=== PATIENT | female | born 1975 | race Caucasian/White ===

== ENCOUNTER 2016-12-11 14:23 | Inpatient (IN) | payer MEDICAID, OTHER ==
[2016-12-11] VITALS (8 sets, daily range): BP systolic 95–127; BP diastolic 51–91; PULSE 38–92; RESP 18–20; TEMP 97.6–98; O2SAT 96–100
[~2016-12-11] VITALS: Ht 165.1 cm; Wt 80.5 kg
[~2016-12-11 14:23] MED LIST: BENT20TA OR; BUSP15TA PO; CLON1 PO; DOXY100T PO; FERR200T PO; HYDR50 PO; LEVO.2 PO; LEVO175T2 PO; LORT5TAB PO; METH10TA PO; OMPR20CCR PO; PROM25TA10 PO; PROM25TA5 PO; PROT40TA PO; SERO300T PO; TRAZ150T75 PO
--- NOTE | 2016-12-11 14:29 | PD ---
Physical Exam Time Seen by Provider: 14:28 Narrative 41 y/o female here for evaluation of bradycardia, out of synthroid for over 1 year, abnormal ekg at physicians office today. Vital signs reviewed. seen at triage desk. Awaiting bed placement. Data Data Last Documented VS Vital Signs Date Time Temp Pulse Resp B/P Pulse Ox O2 Delivery O2 Flow Rate FiO2 12/11/16 14:24 98.0 38 20 125/[address] [facility] Medical Record Reviewed: Yes Supervised Visit with CAMERON: No Shawn Carson Dec 11, 2016 14:29
--- NOTE | 2016-12-11 15:08 | PD ---
HPI Chief Complaint: Cardiac Complaint Time Seen by Provider: 15:08 Travel History International Travel<30 days: No Contact w/Intl Traveler<30days: No Traveled to known affect area: No History of Present Illness HPI 41 year old female presents to the emergency department for evaluation of bradycardia. The patient states that she went to see her primary care physician today and her heart rate was 40. EKG was done. Her primary care physician told her it was most likely due to her thyroid. She left the office and went to see her psychiatrist. They took her vitals and her blood pressure was stable. Her heart rate was again 40. Patient was seeing her psychiatrist and her primary care physician called her and told her that she should probably go to the emergency department. The patient states that she became extremely anxious at that point and started with left-sided chest pain. She states she feels short of breath. She states that she has a long history of anxiety. She is on Seroquel, Klonopin, methadone, Protonix. She has a history of anemia, Martinez esophagus, h/o esophageal stricture, anxiety. She states she has anemia from heavy menstrual cycles. She states she has been on her menstrual cycle for 3 days now and states it is heavy. She states she felt lightheaded yesterday and felt like she was going to have a syncopal episode, but did not. PFSH Past Medical History Anemia: Yes Arthritis: No Asthma: No Autoimmune Disease: No Blood Disorders: No Anxiety: Yes Depression: Yes Heart Rhythm Problems: No Cancer: No Cardiovascular Problems: No High Cholesterol: No Chest Pain: No Congestive Heart Failure: No COPD: No Cerebrovascular Accident: Yes (TIA 1997) Diabetes: No Diminished Hearing: No Endocrine: Yes Gastrointestinal Disorders: Yes (GASTROPARESIS/ BARRETTS ESOPHAGUS) GERD: Yes Glaucoma: No Genitourinary: Yes (CHRONIC PID PER PT) Hepatitis: No Hiatal Hernia: No Hypertension: No Immune Disorder: No Implanted Vascular Access Dvce: Yes Kidney Stones: No Musculoskeletal: No Neurologic: Yes Psychiatric: No Reproductive: No Respiratory: No Myocardial Infarction: No Renal Failure: No Sleep Apnea: No Thyroid Disease: Yes Ulcer: No ?: Not LMP: 12/09/16 : 2 Para: 2 Miscarriage: 2 : 0 Tubal Ligation: Yes Past Surgical History Abdominal Surgery: No Appendectomy: No Cardiac Surgery: No Section: Yes (X2) Cholecystectomy: No Ear Surgery: No Endocrine Surgery: No Eye Surgery: No Genitourinary Surgery: No Gynecologic Surgery: Yes (TUBAL LIGATION & C- SECTION X 2) Oral Surgery: Yes (FULL MOUTH EXTRACTION) Thoracic Surgery: No Tonsillectomy: Yes Other Surgery: Yes Social History Alcohol Use: No Tobacco Use: No Substance Use: No Allergies-Medications (Allergen,Severity, Reaction): Coded Allergies: No Known Allergies (Verified , 12/11/16) Reported Meds & Prescriptions Reported Meds & Active Scripts Active Feosol (Ferrous Sulfate) 200 Mg Tab 200 Mg PO DAILY Synthroid (Levothyroxine Sodium) 200 Mcg Tab 200 Mcg PO DAILY Phenergan (Promethazine HCl) 25 Mg Tablet 25 Mg PO ONCE Reported Protonix (Pantoprazole Sodium) 40 Mg Tab 40 Mg PO DAILY Methadone (Methadone HCl) 10 Mg Tab 10 Mg PO DAILY Klonopin (Clonazepam) 1 Mg Tab 1 Mg PO HS Seroquel (Quetiapine Fumarate) 300 Mg Tab 300 Mg PO BID Review of Systems Except as stated in HPI: all other systems reviewed are Neg Physical Exam Narrative GENERAL: Well-nourished, well-developed female patient, ambulatory. Afebrile. SKIN: Focused skin assessment warm/dry. HEAD: Normocephalic. Atraumatic. EYES: No scleral icterus. No injection or drainage. NECK: Supple, trachea midline. No JVD or lymphadenopathy. CARDIOVASCULAR: Regular rhythm without murmurs, gallops, or rubs. Patient is bradycardic with heart rate in the 30s, bigeminy. She is not perfusing the PVCs. RESPIRATORY: Breath sounds equal bilaterally. No accessory muscle use. Lungs sounds are clear to auscultation. GASTROINTESTINAL: Abdomen soft, non-tender, nondistended. MUSCULOSKELETAL: No cyanosis, or edema. BACK: Nontender without obvious deformity. No CVA tenderness. Data Data Last Documented VS Vital Signs Date Time Temp Pulse Resp B/P Pulse Ox O2 Delivery O2 Flow Rate FiO2 12/11/16 16:18 70 18 127/91 99 Room Air 12/11/16 14:24 98.0 Orders Electrocardiogram (12/11/16 ) Complete Blood Count With Diff (12/11/16 14:33) Comprehensive Metabolic Panel (12/11/16 14:33) Magnesium (Mg) (12/11/16 14:33) Ckmb (Isoenzyme) Profile (12/11/16 14:33) Troponin I (12/11/16 14:33) Thyroid Stimulating Hormone (12/11/16 14:33) Ed Urine Pregnancytest Poc (12/11/16 14:33) Chest, Single Ap (12/11/16 14:33) Lorazepam Inj (Ativan Inj) (12/11/16 15:30) CKMB (12/11/16 14:45) CKMB% (12/11/16 14:45) Admit Order (Ed Use Only) (12/11/16 17:32) Labs Laboratory Tests Test 12/11/16 14:45 White Blood Count 7.4 TH/MM3 Red Blood Count 3.92 MIL/MM3 Hemoglobin 10.1 GM/DL Hematocrit 31.3 % Mean Corpuscular Volume 79.8 FL Mean Corpuscular Hemoglobin 25.7 PG Mean Corpuscular Hemoglobin 32.3 % Concent Red Cell Distribution Width 22.6 % Platelet Count 205 TH/MM3 Mean Platelet Volume 9.4 FL Neutrophils (%) (Auto) 52.8 % Lymphocytes (%) (Auto) 39.5 % Monocytes (%) (Auto) 4.4 % Eosinophils (%) (Auto) 2.5 % Basophils (%) (Auto) 0.8 % Neutrophils # (Auto) 3.9 TH/MM3 Lymphocytes # (Auto) 2.9 TH/MM3 Monocytes # (Auto) 0.3 TH/MM3 Eosinophils # (Auto) 0.2 TH/MM3 Basophils # (Auto) 0.1 TH/MM3 CBC Comment DIFF FINAL Differential Comment Sodium Level 139 MEQ/L Potassium Level 4.3 MEQ/L Chloride Level 103 MEQ/L Carbon Dioxide Level 27.9 MEQ/L Anion Gap 8 MEQ/L Blood Urea Nitrogen 10 MG/DL Creatinine 1.62 MG/DL Estimat Glomerular Filtration 35 ML/MIN Rate Random Glucose 81 MG/DL Calcium Level 8.6 MG/DL Magnesium Level 2.2 MG/DL Total Bilirubin 0.3 MG/DL Aspartate Amino Transf 29 U/L (AST/SGOT) Alanine Aminotransferase 41 U/L (ALT/SGPT) Alkaline Phosphatase 48 U/L Total Creatine Kinase 168 U/L Creatine Kinase MB 1.0 NG/ML Troponin I LESS THAN 0.02 NG/ML Total Protein 7.7 GM/DL Albumin 4.0 GM/DL Thyroid Stimulating Hormone GREATER THAN 3rd Gen 100.000 uIU/ML MDM Medical Decision Making Medical Screen Exam Complete: Yes Emergency Medical Condition: Yes Medical Record Reviewed: Yes Differential Diagnosis Bigeminy versus electrolyte abnormality versus anemia Narrative Course 41-year-old female presents to the emergency department sent by her primary care physician for abnormal EKG, bradycardia. On exam, she is in bigeminy not perfusing the PVCs. She is anxious. EKG, CBC, CMP, magnesium, CK, troponin, TSH, chest x-ray are ordered and pending. CBC shows hemoglobin 10.1, hematocrit 31.3. CMP shows creatinine 1.62. CK is 168. Troponin is less than 0.02. Magnesium is 2.2. TSH is greater than 100.0. I discussed this with [facility] would like me to contact cardiology track service person. I spoke to Dr. crisostomo who would like the patient be nothing by mouth after midnight. Consult was placed. Patient is admitted. Diagnosis Primary Impression: Bradycardia Additional Impressions: Bigeminal rhythm Abnormal EKG Hypothyroidism Qualified Code: E03.9 - Hypothyroidism, unspecified type Admitting Information Admitting Physician Requests: Admit Karyna Malhotra Dec 11, 2016 15:08
[2016-12-11] MEDS ORDERED: LORazepam 2 MG/ML VIAL IV PUSH ONE (15:30)
[2016-12-11 15:42] LABS: AUTOMATED NEUTROPHIL # 3.9 TH/MM3 (1.8-7.7); BASOPHIL # 0.1 TH/MM3 (0-0.2); BASOPHIL % 0.8 % (0.0-2.0); EOSINOPHIL # 0.2 TH/MM3 (0-0.4); EOSINOPHIL % 2.5 % (0.0-4.0); HEMATOCRIT 31.3 % (35.0-46.0); HEMO FLAGS DIFF FINAL; LYMPH % 39.5 % (9.0-44.0); LYMPHOCYTE # 2.9 TH/MM3 (1.0-4.8); MEAN CELL VOLUME 79.8 FL (80.0-100.0); MEAN CORPUSCULAR HEMOGLOBIN 25.7 PG (27.0-34.0); MEAN CORPUSCULAR HGB CONC 32.3 % (32.0-36.0); MONO % 4.4 % (0.0-8.0); NEUT % 52.8 % (16.0-70.0); PLATELET COUNT 205 TH/MM3 (150-450); RED BLOOD COUNT 3.92 MIL/MM3 (4.00-5.30); RED CELL DISTRIBUTION WIDTH 22.6 % (11.6-17.2); WHITE BLOOD COUNT 7.4 TH/MM3 (4.0-11.0)
[2016-12-11 15:58] LABS: ALT (GPT) 41 U/L (10-53); ANION GAP 8 MEQ/L (5-15); AST (GOT) 29 U/L (15-37); BICARBONATE 27.9 MEQ/L (21.0-32.0); BLOOD UREA NITROGEN 10 MG/DL (7-18); CHLORIDE 103 MEQ/L (98-107); GLOMERULAR FILTRATION RATE 35 ML/MIN (>89); MAGNESIUM 2.2 MG/DL (1.5-2.5); POTASSIUM 4.3 MEQ/L (3.5-5.1); SODIUM (NA) 139 MEQ/L (136-145)
[2016-12-11 16:30] LABS: ALKALINE PHOSPHATASE 48 U/L (45-117); CREATINE KINASE 168 U/L (26-192); TOTAL BILIRUBIN ADULT 0.3 MG/DL (0.2-1.0)
--- NOTE | 2016-12-11 16:45 | RADRPT ---
EXAM DATE/TIME: 12/11/2016 16:12 [place] COMPARISON: No previous studies available for comparison. INDICATIONS : Shortness of breath. MEDICAL HISTORY : None. SURGICAL HISTORY : Tubal ligation. section. Tonsillectomy. ENCOUNTER: Initial ACUITY: 1 day PAIN SCORE: 0/10 LOCATION: Bilateral chest FINDINGS: A single view of the chest demonstrates the lungs to be symmetrically aerated without evidence of mas s, infiltrate or effusion. Minimal basal atelectasis. The cardiomediastinal contours are unremarkable . Osseous structures are intact. CONCLUSION: 1. No acute findings. Minimal basal atelectasis. Anish Jimenez MD on December 11, 2016 at 16:43 Board Certified Radiologist. This report was verified electronically.
[2016-12-11] MEDS ORDERED: ACETAMINOPHEN 325 MG TAB PO PRN ×2 (18:00)
[2016-12-11] MEDS ORDERED: MAGNESIUM HYDROXIDE SUSP 30 ML CUP PO PRN (18:00)
[2016-12-11] MEDS ORDERED: SODIUM CHLORIDE 0.9% FLUSH 10 ML FLUSH IV FLUSH PRN (18:00)
[2016-12-11] MEDS ORDERED: NALOXONE HCL 0.4 MG/ML AMP IV PRN (18:00)
[2016-12-11] MEDS ORDERED: SENNOSIDES 8.6 MG TAB PO PRN (18:00)
[2016-12-11] MEDS ORDERED: LACTULOSE SYRUP 20 GM/30 ML CUP PO PRN (18:00)
[2016-12-11] MEDS ORDERED: BISACODYL 10 MG SUPP RECTAL PRN (18:00)
--- NOTE | 2016-12-11 18:15 | HHI.HP ---
HPI Service [place] [facility] Primary Care Physician Sabrina White MD Admission Diagnosis bradycardia, CP, bigeminy Diagnoses: Chief Complaint: Bradycardia Travel History International Travel<30 Days: No Contact w/Intl Traveler <30 Da: No Traveled to Known Affected Are: No History of Present Illness 41-year-old female with past medical history of hypothyroidism, ADA, GERD, bipolar, and history of opiate abuse who was sent by PCP for bradycardia. The patient establish with her [facility]. She is noted to have a heart rate of 38 at the time. It had been recommended that she go to the ED, but she wanted to go to her outpatient psychiatrist appointment first. She states that she went and saw her psychiatrist and they have noted that her heart rate was 40 that time and also recommended she come to the ED. The patient initially came to the ED today and heart rate was 38 upon presentation. The patient states that she's been feeling lightheaded for the last few days and yesterday felt like she was when the pass out. She states her symptoms are worse with standing. She states that she's been on her period for the last 3 days, normally feels a little bit dizzy with standing when she is on her period but not so badly. The patient has been off of her thyroid medications for several months and got her prescription refilled today. She is also on methadone for history of substance abuse, has been clean for 3 years. She states that she has been tapering methadone 10 mg every 2 weeks, just decreased to 140 mg daily today. Per ED report, patient's heart rate has been running 50 60s, but palpably has been 30 and 40s and she was noted to have intermittent episodes of bigeminy. She states that she felt short of breath earlier, but attributed it to her severe anxiety. She denies any chest pain. Review of Systems Except as stated in HPI: all other systems reviewed are Neg Past Family Social History Past Medical History Hypothyroidism Versus esophagitis/GERD Iron deficiency anemia Anxiety and bipolar disorder History of opiate abuse Past Surgical History 2 and tubal ligation Tonsillectomy EGDs Reported Medications Reported Meds & Active Scripts Active Feosol (Ferrous Sulfate) 200 Mg Tab 200 Mg PO DAILY Synthroid (Levothyroxine Sodium) 200 Mcg Tab 200 Mcg PO DAILY Phenergan (Promethazine HCl) 25 Mg Tablet 25 Mg PO ONCE Reported Protonix (Pantoprazole Sodium) 40 Mg Tab 40 Mg PO DAILY Methadone (Methadone HCl) 10 Mg Tab 10 Mg PO DAILY Klonopin (Clonazepam) 1 Mg Tab 1 Mg PO HS Seroquel (Quetiapine Fumarate) 300 Mg Tab 300 Mg PO BID Allergies: Coded Allergies: No Known Allergies (Verified , 12/11/16) Family History Reviewed, negative family history pertinent to current chief complaint Social History Patient denies any alcohol or tobacco use History of opiate abuse, reports she has been clean 3 years Physical Exam Vital Signs Vital Signs Date Time Temp Pulse Resp B/P Pulse Ox O2 Delivery O2 Flow Rate FiO2 12/11/16 17:39 92 18 104/57 96 Room Air 12/11/16 16:18 70 18 127/91 99 Room Air 12/11/16 15:38 63 18 113/59 99 Room Air 12/11/16 15:02 55 22 100 Room Air 12/11/16 14:24 98.0 38 20 125/62 98 Room Air Physical Exam GENERAL: This is a well-nourished, well-developed patient, in no apparent distress. SKIN: No rashes, ecchymoses or lesions. Cool and dry. HEAD: Atraumatic. Normocephalic. No temporal or scalp tenderness. EYES: Pupils equal round and reactive. Extraocular motions intact. No scleral icterus. No injection or drainage. ENT: Nose without bleeding, purulent drainage or septal hematoma. Throat without erythema, tonsillar hypertrophy or exudate. Uvula midline. Airway patent. NECK: Trachea midline. No JVD or lymphadenopathy. Supple, nontender, no meningeal signs. CARDIOVASCULAR: Regular rate and rhythm without murmurs, gallops, or rubs. RESPIRATORY: Clear to auscultation. Breath sounds equal bilaterally. No wheezes , rales, or rhonchi. GASTROINTESTINAL: Abdomen soft, non-tender, nondistended. No hepato-splenomegaly , or palpable masses. No guarding. MUSCULOSKELETAL: Extremities without clubbing, cyanosis, or edema. No joint tenderness, effusion, or edema noted. No calf tenderness. Negative Homans sign bilaterally. NEUROLOGICAL: Awake and alert. Cranial nerves II through XII intact. Motor and sensory grossly within normal limits. Five out of 5 muscle strength in all muscle groups. Normal speech. Laboratory Laboratory Tests Test 12/11/16 14:45 White Blood Count 7.4 Red Blood Count 3.92 Hemoglobin 10.1 Hematocrit 31.3 Mean Corpuscular Volume 79.8 Mean Corpuscular Hemoglobin 25.7 Mean Corpuscular Hemoglobin 32.3 Concent Red Cell Distribution Width 22.6 Platelet Count 205 Mean Platelet Volume 9.4 Neutrophils (%) (Auto) 52.8 Lymphocytes (%) (Auto) 39.5 Monocytes (%) (Auto) 4.4 Eosinophils (%) (Auto) 2.5 Basophils (%) (Auto) 0.8 Neutrophils # (Auto) 3.9 Lymphocytes # (Auto) 2.9 Monocytes # (Auto) 0.3 Eosinophils # (Auto) 0.2 Basophils # (Auto) 0.1 CBC Comment DIFF FINAL Differential Comment Sodium Level 139 Potassium Level 4.3 Chloride Level 103 Carbon Dioxide Level 27.9 Anion Gap 8 Blood Urea Nitrogen 10 Creatinine 1.62 Estimat Glomerular Filtration 35 Rate Random Glucose 81 Calcium Level 8.6 Magnesium Level 2.2 Total Bilirubin 0.3 Aspartate Amino Transf 29 (AST/SGOT) Alanine Aminotransferase 41 (ALT/SGPT) Alkaline Phosphatase 48 Total Creatine Kinase 168 Creatine Kinase MB 1.0 Troponin I LESS THAN 0.02 Total Protein 7.7 Albumin 4.0 Thyroid Stimulating Hormone GREATER THAN 3rd Gen 100.000 Result Diagram: 12/11/16 1445 12/11/16 1445 Assessment and Plan Assessment and Plan 41-year-old female with past medical history of hypothyroidism, ADA, GERD, bipolar, and history of opiate abuse who was sent by PCP for bradycardia Symptomatic bradycardia: Palpable pulse around 38. Patient complaining of episodes of lightheadedness and near-syncope especially with standing. EKG shows NSR with bigeminal PVCs, rate 61 when counting PVCs, QT interval 476. Vital signs are currently stable. -Cardiology consulted, appreciate input -Will attempt to limit bradycardia causing medications -Monitor on telemetry -Trend cardiac enzymes and EKGs -Check orthostatics -Treat thyroid as below -Check echocardiogram CLEO: Creatinine 1.62, previously 0.74 and 04/19/12. Decreased renal perfusion? . IVF. Follow-up BMP. Hypothyroidism: Previously on levothyroxine 200 g daily, has been off of home medications for several months. Patient's PCP resumed her previous dose of levothyroxine today. TSH greater than 100,000. Continue levothyroxine. Microcytic anemia/iron deficiency anemia: Patient has history of [place], continue iron supplementation. Follow-up CBC. Check iron studies in the a.m. Bipolar disorder/anxiety: Continue Seroquel, consider decreasing dose. Continue Klonopin. History of opiate abuse: Patient decreased home methadone dose from 150 mg to 140 mg today. Consider shorter tapering course. GERD: Chronic, stable. Continue PPI. DVT prophylaxis: SCDs Discussed Condition With Patient, Dr. Lino Attending Statement The exam, history, and the medical decision-making described in the above note were completed with the assistance of the mid-level provider. I reviewed and agree with the findings presented. I attest that I had a [id number] encounter with the patient on the same day, and personally performed and documented my assessment and findings in the medical record. During my exam, patient is resting comfortably, slightly anxious otherwise. No acute distress. Palpable pulse and right radial artery is in the 30s to 40s. No lower extremity edema or JVD noted. Clear breath sounds bilaterally, abdomen is nondistended, soft. Patient has normal skin tone with no signs of pallor or cyanosis. Agree with plan as above. Adrian Valenzuela Dec 11, 2016 18:15 Jas Lino MD Dec 11, 2016 19:40
[2016-12-11] MEDS: SODIUM CHLOR 0.9% 1000 ML INJ 1,000 ML IV SCH (19:27)
[2016-12-11] MEDS ORDERED: hydrOXYzine PAMOATE 25 MG CAP PO PRN (20:00)
[2016-12-11] MEDS: DOCUSATE SODIUM 50 MG/SENNA 8.6 MG TAB PO SCH (20:43)
[2016-12-11] MEDS: clonazePAM 1 MG TAB PO SCH (20:43)
[2016-12-11] MEDS: SODIUM CHLORIDE 0.9% FLUSH 10 ML FLUSH IV FLUSH SCH (20:44)
[2016-12-11] MEDS: QUEtiapine FUMARATE 300 MG TAB PO SCH (22:46)
[2016-12-12] VITALS (23 sets, daily range): BP systolic 81–132; BP diastolic 55–74; PULSE 44–97; RESP 16–18; TEMP 97.5–98.9; O2SAT 92–98
[2016-12-12] MEDS: SODIUM CHLOR 0.9% 1000 ML INJ 1,000 ML IV SCH ×3 (05:00→23:54)
[2016-12-12] MEDS ORDERED: ONDANSETRON HCL 4 MG/2 ML VIAL IV PUSH PRN (05:45)
[2016-12-12] MEDS: LEVOTHYROXINE SODIUM 200 MCG TAB PO SCH (06:00)
[2016-12-12 06:14] LABS: AUTOMATED NEUTROPHIL # 2.1 TH/MM3 (1.8-7.7); BASOPHIL # 0.1 TH/MM3 (0-0.2); EOSINOPHIL # 0.3 TH/MM3 (0-0.4); EOSINOPHIL % 4.8 % (0.0-4.0); HEMATOCRIT 28.9 % (35.0-46.0); LYMPH % 51.3 % (9.0-44.0); LYMPHOCYTE # 2.8 TH/MM3 (1.0-4.8); MEAN CELL VOLUME 79.9 FL (80.0-100.0); MEAN CORPUSCULAR HEMOGLOBIN 26.8 PG (27.0-34.0); MEAN CORPUSCULAR HGB CONC 33.6 % (32.0-36.0); NEUT % 37.9 % (16.0-70.0); PLATELET COUNT 150 TH/MM3 (150-450); RED BLOOD COUNT 3.61 MIL/MM3 (4.00-5.30); RED CELL DISTRIBUTION WIDTH 22.9 % (11.6-17.2); WHITE BLOOD COUNT 5.4 TH/MM3 (4.0-11.0)
[2016-12-12 06:18] LABS: HEMO FLAGS AUTO DIFF
[2016-12-12 06:36] LABS: FERRITIN 5 NG/ML (8-252)
[2016-12-12 06:50] LABS: ACANTHOCYTES 1+ (NORMAL); ANION GAP 8 MEQ/L (5-15); BICARBONATE 25.8 MEQ/L (21.0-32.0); BLOOD UREA NITROGEN 10 MG/DL (7-18); CHLORIDE 105 MEQ/L (98-107); GLOMERULAR FILTRATION RATE 42 ML/MIN (>89); OVALOCYTES 1+ (NORMAL); PLATELET ESTIMATE SMEAR NORMAL (NORMAL); PLATELET MORPHOLOGY NORMAL (NORMAL); SODIUM (NA) 139 MEQ/L (136-145); TRANSFERRIN IRON PROFILE 279 MG/DL (200-360)
[2016-12-12 06:51] LABS: SCAN/DIFF AUTO DIFF CONFIRMED
[2016-12-12 06:53] LABS: POTASSIUM 3.8 MEQ/L (3.5-5.1)
--- NOTE | 2016-12-12 08:03 | PD.CONS ---
HPI Service CV Consult Requested By Reason for Consult bradycardia Primary Care Physician Sabrina White MD History of Present Illness Here with bipolar disorder and history of opiate abuse on methadone for symptomatic bradycardia. She was to establish with her PCP yesterday. On that visit her heart rate was in the high thirties. She was urged to go to ER but wanted to see her Psychiatrist. There her heart rate was in the forties. She has been of her levothyroxine. Here her TSH was found to be > 100. She complains of lightheadedness and shortness of breath. She denies chest pain or palpitations. One ECG revealed bigeminy with QTc 476. She takes Seroquel which is associated with QT prolongation (Claus Lloyd) Consult Requested By bradycardia - HR now generally in the 50's. Augments BP with ambulation. No indication for PPM for now unless syncopal. No conduction dz. Correct hypothyroidism and monitor HR response. avoid AV sara blocking agents. QTc less than 500 ms. monitor QTc with methadone and seroquel, both of which can prolong QT. if QTc > 500 ms, then will need to discontinue QT prolonging meds. will sign off call with further questions. (Lucio Mcknight MD) Review of Systems Consitutional: DENIES: Fatigue, Fever, Chills, Weight gain, Weight loss Eyes: DENIES: Amaurosis Fugax, Change in vision HEENT: COMPLAINS OF: Lightheadedness, DENIES: Change in hearing Respiratory: COMPLAINS OF: Shortness of breath, DENIES: See HPI, Cough, Snoring, Wheezing, Sputum production Cardiovascular: COMPLAINS OF: See HPI Gastrointestinal: DENIES: Nausea, Vomiting, Change in bowel habits, Reflux, Bloody stools, Melena Genitourinary: DENIES: Urinary incontinence, Difficulty voiding Integumentary: DENIES: Rash Neurologic: DENIES: Tingling or numbness, Memory problems, Poor Balance, Stroke symptoms Musculoskeletal: DENIES: Joint pain, Muscle pain, Limited range of motion, Back pain Psychiatric: DENIES: Anxiety, Depression, Sleep disturbances Hematologic: DENIES: Bruising tendencies, Bleeding tendencies Endocrine: DENIES: Weight gain, Weight loss, Thyroid disease (Claus Lloyd ) Past Family Social History Allergies: Coded Allergies: No Known Allergies (Verified , 12/11/16) Past Medical History Hypothyroidism esophagitis/GERD Iron deficiency anemia Anxiety Past Surgical History 2 and tubal ligation Tonsillectomy EGDs Reported Medications Reported Meds & Active Scripts Active Feosol (Ferrous Sulfate) 200 Mg Tab 200 Mg PO DAILY Synthroid (Levothyroxine Sodium) 200 Mcg Tab 200 Mcg PO DAILY Phenergan (Promethazine HCl) 25 Mg Tablet 25 Mg PO ONCE Reported Protonix (Pantoprazole Sodium) 40 Mg Tab 40 Mg PO DAILY Methadone (Methadone HCl) 10 Mg Tab 10 Mg PO DAILY Klonopin (Clonazepam) 1 Mg Tab 1 Mg PO HS Seroquel (Quetiapine Fumarate) 300 Mg Tab 300 Mg PO BID Active Ordered Medications Current Medications Medications (Trade) Dose Ordered Sig/Ailyn Route Start Time Stop Time Status Last Admin (NS 1000 ml Inj) 1,000 ml @ 100 mls/hr Q10H IV 12/11/16 17:54 12/12/16 05:00 (NS Flush) 2 ml UNSCH PRN IV FLUSH 12/11/16 18:00 (NS Flush) 2 ml BID IV FLUSH 12/11/16 21:00 (Tylenol) 650 mg Q4H PRN PO 12/11/16 18:00 (Tylenol) 650 mg Q6H PRN PO 12/11/16 18:00 (Narcan Inj) 0.4 mg UNSCH PRN IV 12/11/16 18:00 (Katharine-Colace) 1 tab BID PO 12/11/16 21:00 12/11/16 20:43 (Milk Of Magnesia Liq) 30 ml Q12H PRN PO 12/11/16 18:00 (Senokot) 17.2 mg Q12H PRN PO 12/11/16 18:00 (Dulcolax Supp) 10 mg DAILY PRN RECTAL 12/11/16 18:00 (Lactulose Liq) 30 ml DAILY PRN PO 12/11/16 18:00 (KlonoPIN) 1 mg HS PO 12/11/16 21:00 12/11/16 20:43 (Ferrous Sulfate) 325 mg DAILY PO 12/12/16 09:00 (Synthroid) 200 mcg DAILY@06 PO 12/12/16 06:00 12/12/16 06:00 (Protonix) 40 mg DAILY PO 12/12/16 09:00 (SEROquel) 300 mg BID PO 12/11/16 21:00 12/11/16 22:46 (Dolophine) 140 mg DAILY PO 12/12/16 09:00 (Vistaril) 25 mg Q8H PRN PO 12/11/16 20:00 Ondansetron HCl 4 mg 4 mg Q6HR PRN IV PUSH 12/12/16 05:45 12/12/16 05:30 (Venofer Inj/NS Inj) 105 ml @ 105 mls/hr DAILY IV 12/12/16 08:00 12/13/16 09:59 UNV Family History noncontributory Social History Patient denies any alcohol or tobacco use History of opiate abuse, reports she has been clean 3 years (Claus Lloyd) Physical Exam Vital Signs Vital Signs Date Time Temp Pulse Resp B/P Pulse Ox O2 Delivery O2 Flow Rate FiO2 12/12/16 06:00 48 12/12/16 05:00 52 12/12/16 04:00 52 12/12/16 03:00 97.6 44 18 81/57 95 12/12/16 03:00 56 12/12/16 02:00 56 12/12/16 01:00 54 12/12/16 00:13 21 12/12/16 00:00 54 12/11/16 23:00 97.6 55 18 112/70 96 12/11/16 23:00 58 12/11/16 23:00 97.6 55 18 112/70 96 12/11/16 22:00 54 12/11/16 18:48 58 18 105/58 100 Room Air 12/11/16 18:25 42 18 95/51 98 Room Air 12/11/16 17:39 92 18 104/57 96 Room Air 12/11/16 16:18 70 18 127/91 99 Room Air 12/11/16 15:38 63 18 113/59 99 Room Air 12/11/16 15:02 55 22 100 Room Air 12/11/16 14:24 98.0 38 20 125/62 98 Room Air Physical Exam GENERAL: Well-nourished, well-developed patient in no apparent distress. NECK: No JVD. No carotid bruit. CARDIOVASCULAR: Bradycardia, regular rhythm. S1/S2 no murmur, rub, or gallop. RESPIRATORY: No accessory muscle use. Clear to auscultation. Breath sounds equal bilaterally. GASTROINTESTINAL: Abdomen soft, non-tender, nondistended. MUSCULOSKELETAL: Extremities without clubbing, cyanosis, or edema. Laboratory Laboratory Tests Test 12/11/16 12/11/16 12/11/16 12/12/16 14:45 18:20 22:54 04:25 White Blood Count 7.4 5.4 Red Blood Count 3.92 3.61 Hemoglobin 10.1 9.7 Hematocrit 31.3 28.9 Mean Corpuscular Volume 79.8 79.9 Mean Corpuscular Hemoglobin 25.7 26.8 Mean Corpuscular Hemoglobin 32.3 33.6 Concent Red Cell Distribution Width 22.6 22.9 Platelet Count 205 150 Mean Platelet Volume 9.4 9.6 Neutrophils (%) (Auto) 52.8 37.9 Lymphocytes (%) (Auto) 39.5 51.3 Monocytes (%) (Auto) 4.4 5.0 Eosinophils (%) (Auto) 2.5 4.8 Basophils (%) (Auto) 0.8 1.0 Neutrophils # (Auto) 3.9 2.1 Lymphocytes # (Auto) 2.9 2.8 Monocytes # (Auto) 0.3 0.3 Eosinophils # (Auto) 0.2 0.3 Basophils # (Auto) 0.1 0.1 CBC Comment DIFF FINAL AUTO DIFF Differential Comment AUTO DIFF CONFIRMED Sodium Level 139 139 Potassium Level 4.3 3.8 Chloride Level 103 105 Carbon Dioxide Level 27.9 25.8 Anion Gap 8 8 Blood Urea Nitrogen 10 10 Creatinine 1.62 1.37 Estimat Glomerular Filtration 35 42 Rate Random Glucose 81 86 Calcium Level 8.6 7.9 Magnesium Level 2.2 Total Bilirubin 0.3 Aspartate Amino Transf 29 (AST/SGOT) Alanine Aminotransferase 41 (ALT/SGPT) Alkaline Phosphatase 48 Total Creatine Kinase 168 Creatine Kinase MB 1.0 Troponin I LESS THAN 0.02 LESS THAN 0.02 LESS THAN 0.02 Total Protein 7.7 Albumin 4.0 Thyroid Stimulating Hormone GREATER THAN 3rd Gen 100.000 Platelet Estimate NORMAL Platelet Morphology Comment NORMAL Ovalocytes 1+ Acanthocytes 1+ Iron Level 37 Total Iron Binding Capacity 391 Percent Iron Saturation 9.5 Ferritin 5 (Claus Lloyd) Result Diagram: 12/12/165 12/12/16424 Assessment and Plan Problem List: (1) Bradycardia Assessment and Plan Her bradycardia is most likely related to her hypothyroidism, As her thyroid function improves so should her heart rate. Her QTc returned to normal on second ECG, if she continues to have QT prolongation recommend discontinuing Seroquel Sign off, call with further questions (Claus Lloyd) Claus Lloyd Dec 12, 2016 08:03 Lucio Mcknight MD Dec 12, 2016 10:33
[2016-12-12] MEDS: FERROUS SULFATE 325 MG (65 MG ELEMENTAL IRON) TAB PO SCH (08:51)
[2016-12-12] MEDS: QUEtiapine FUMARATE 300 MG TAB PO SCH ×2 (08:51→21:29)
[2016-12-12] MEDS: PANTOPRAZOLE SOD 40 MG DELAYED RELEASE TAB PO SCH (08:51)
[2016-12-12] MEDS: METHADONE HCL 10 MG TAB PO SCH (08:52)
[2016-12-12] MEDS: SODIUM CHLORIDE 0.9% FLUSH 10 ML FLUSH IV FLUSH SCH ×2 (08:52→21:00)
[2016-12-12] MEDS: DOCUSATE SODIUM 50 MG/SENNA 8.6 MG TAB PO SCH ×2 (09:00→21:29)
[2016-12-12] MEDS: IRON SUCROSE INJ 100 MG in SODIUM CHLORIDE 0.9% INJ 100 ML IV SCH (09:00)
--- NOTE | 2016-12-12 11:51 | EKG ---
Date Performed: 12/11/2016 Time Performed: 18:50:46 PTAGE: 41 years EKG: SINUS BRADYCARDIA NONSPECIFIC ST & T-WAVE ABNORMALITY BORDERLINE ECG PREVIOUS TRACING : 12/11/2016 14.37 Compared to previous tracing, frequent PVCs are no longer p resent. DOCTOR: Farhat Sykes Interpretating Date/Time 12/12/2016 11:50:38
--- NOTE | 2016-12-12 11:51 | EKG ---
Date Performed: 12/11/2016 Time Performed: 14:37:48 PTAGE: 41 years EKG: Sinus bradycardia with frequent PVCs Nonspecific T-wave changes NO PREVIOUS TRACING DOCTOR: Farhat Sykes Interpretating Date/Time 12/15/2016 06:40:54
--- NOTE | 2016-12-12 17:25 | HHI.PR ---
Subjective Remarks Patient feels much better today, dizziness is a lot better, still has a little hesitation with prompt standing. Objective Vital Signs Date Time Temp Pulse Resp B/P Pulse Ox O2 Delivery O2 Flow Rate FiO2 12/12/16 17:12 72 12/12/16 16:02 98.3 97 18 92/55 98 12/12/16 16:02 72 12/12/16 14:31 79 12/12/16 13:37 72 12/12/16 12:38 98.9 81 18 132/74 12/12/16 12:31 80 12/12/16 11:00 56 12/12/16 10:12 97 21 12/12/16 08:00 97.9 61 18 105/71 97 110/69 12/12/16 06:00 48 12/12/16 05:00 52 12/12/16 04:00 52 12/12/16 03:00 97.6 44 18 81/57 95 12/12/16 03:00 56 12/12/16 02:00 56 12/12/16 01:00 54 12/12/16 00:13 21 12/12/16 00:00 54 12/11/16 23:00 97.6 55 18 112/70 96 12/11/16 23:00 58 12/11/16 23:00 97.6 55 18 112/70 96 12/11/16 22:00 54 12/11/16 18:48 58 18 105/58 100 Room Air 12/11/16 18:25 42 18 95/51 98 Room Air 12/11/16 17:39 92 18 104/57 96 Room Air I/O 12/11/16 12/11/16 12/11/16 12/12/16 12/12/16 12/12/16 07:00 15:00 23:00 07:00 15:00 23:00 Intake Total 1278 ml 470 ml Output Total 600 ml Balance 1278 ml -130 ml Intake Oral 240 ml 450 ml IV Total 1038 ml 20 ml Output Urine Total 600 ml Result Diagram: 12/12/16 0425 12/12/16 0425 Imaging Last Impressions Chest X-Ray 12/11/16 1433 Signed Impressions: Service Date/Time: December 16:12 - CONCLUSION: 1. No acute findings. Minimal basal atelectasis. Anish Jimenez MD Objective Remarks GENERAL: No acute distress, resting comfortably EYES: No scleral icterus. No injection or drainage. CARDIOVASCULAR: Heart rate in 50s to 60s that is palpable via Carotid which is in sync with regular heart sounds and no murmurs RESPIRATORY: Breath sounds equal bilaterally. No accessory muscle use. GASTROINTESTINAL: Abdomen soft, non-tender, nondistended. MUSCULOSKELETAL: No cyanosis, clubbing, or edema. A/P Problem List: (1) Hypothyroidism ICD Code: E03.9 (2) Bradycardia ICD Code: R00.1 (3) Anemia ICD Code: D64.9 Assessment and Plan 41-year-old female with past medical history of hypothyroidism, ADA, GERD, bipolar, and history of opiate abuse who was sent by PCP for bradycardia Symptomatic bradycardia: Appreciate cardiology input, suspect hypothyroidism is the main culprit, palpable pulses significantly improved along with patient's symptoms, continue telemetry and treat thyroid as below. Pending echo results. CLEO: Mild hydration, trend creatinine - suspect hypoperfusion. Treat with mild hydration Hypothyroidism: Was restarted on her Synthroid after long time due to poor PCP follow-up, TSH currently greater than 100,000, we'll obtain free T4, anticipate that this will get better drastically over the next 24 hours Microcytic anemia/iron deficiency anemia: Iron is indeed low, replacing with IV infusion Bipolar disorder/anxiety: Continue Seroquel, consider decreasing dose. Continue Klonopin. History of opiate abuse: Patient decreased home methadone dose from 150 mg to 140 mg today. Consider shorter tapering course. GERD: Chronic, stable. Continue PPI. DVT prophylaxis: SCDs Problem Qualifiers (1) Hypothyroidism: Qualified Code: E03.9 - Hypothyroidism, unspecified type (2) Anemia: Qualified Code: D50.0 - Iron deficiency anemia due to chronic blood loss Jas Lino MD Dec 12, 2016 17:25
--- NOTE | 2016-12-12 17:56 | ECHRPT ---
Indication: cardiomyopathy CONCLUSIONS The left ventricular systolic function is moderately reduced with an estimated ejection fraction in the range of 40-45%. There is global left ventricular dysfunction. [id number] mitral valve regurgitation. There is trace tricuspid valve regurgitation. BP: / HR: Rhythm: MEASUREMENTS (Male / Female) Normal Values Technical Quality:Fair 2D ECHO LV Diastolic Diameter PLAX 4.9 cm 4.2 - 5.9 / 3.9 - 5.3 cm LV Systolic Diameter PLAX 4.2 cm IVS Diastolic Thickness 1.0 cm 0.6 - 1.0 / 0.6 - 0.9 cm LVPW Diastolic Thickness 0.8 cm 0.6 - 1.0 / 0.6 - 0.9 cm LV Relative Wall Thickness 0.4 RV Internal Dim ED PLAX 2.8 cm M-MODE Aortic Root Diameter MM 2.9 cm LA Systolic Diameter MM 3.3 cm LA Ao Ratio MM 1.1 AV Cusp Separation MM 2.3 cm DOPPLER Mitral E Point Velocity 58.2 cm/s Mitral A Point Velocity 59.7 cm/s Mitral E to A Ratio 1.0 LV E' Lateral Velocity 16.4 cm/s Mitral E to LV E' Lateral Ratio 3.5 LV E' Septal Velocity 13.5 cm/s Mitral E to LV E' Septal Ratio 4.3 TR Peak Velocity 152.0 cm/s TR Peak Gradient 9.2 mmHg FINDINGS LEFT VENTRICLE Normal left ventricular size. Wall thickness is normal. The left ventricular systolic function is moderately reduced with an estimated ejection fraction in the range of 40-45%. There is global left ventricular dysfunction. Left ventricular diastolic function parameters are normal. RIGHT VENTRICLE Normal right ventricular size and systolic function. LEFT ATRIUM The left atrial size is normal. RIGHT ATRIUM The right atrial size is normal. ATRIAL SEPTUM The interatrial septum not well visualized. AORTA The aortic root and proximal ascending aorta are normal in size on limited imaging. MITRAL VALVE Structurally normal mitral valve. [id number] mitral valve regurgitation. AORTIC VALVE Trileaflet aortic valve. No aortic valve stenosis or regurgitation. TRICUSPID VALVE Structurally normal tricuspid valve. There is trace tricuspid valve regurgitation. PULMONARY VALVE The pulmonary valve is not well visualized. VESSELS The inferior vena cava is normal in size. PERICARDIUM No pericardial effusion. Brennon Butler DO (Electronically Signed) Final Date:12 December 2016 17:55
[2016-12-12] MEDS: clonazePAM 1 MG TAB PO SCH (21:29)
[2016-12-13] VITALS (14 sets, daily range): BP systolic 87–91; BP diastolic 53–57; PULSE 54–95; RESP 16–17; TEMP 98–98.2; O2SAT 92–96
[2016-12-13] MEDS: LEVOTHYROXINE SODIUM 200 MCG TAB PO SCH (06:25)
[2016-12-13] MEDS: METHADONE HCL 10 MG TAB PO SCH (08:40)
[2016-12-13] MEDS: PANTOPRAZOLE SOD 40 MG DELAYED RELEASE TAB PO SCH (08:41)
[2016-12-13] MEDS: QUEtiapine FUMARATE 300 MG TAB PO SCH (08:41)
[2016-12-13] MEDS: DOCUSATE SODIUM 50 MG/SENNA 8.6 MG TAB PO SCH (08:41)
[2016-12-13] MEDS: FERROUS SULFATE 325 MG (65 MG ELEMENTAL IRON) TAB PO SCH (08:42)
[2016-12-13] MEDS: SODIUM CHLORIDE 0.9% FLUSH 10 ML FLUSH IV FLUSH SCH (08:42)
[2016-12-13] MEDS: IRON SUCROSE INJ 100 MG in SODIUM CHLORIDE 0.9% INJ 100 ML IV SCH (08:42)
[2016-12-13] MEDS: SODIUM CHLOR 0.9% 1000 ML INJ 1,000 ML IV SCH (09:54)
--- NOTE | 2016-12-13 13:24 | HHI.DCPOC ---
Discharge Care Plan Diagnosis: (1) Hypothyroidism (2) Bradycardia (3) Anemia Additional Problems Hypothyroidism and slow heart rate Goals to Promote Your Health * To prevent worsening of your condition and complications * To maintain your health at the optimal level Directions to Meet Your Goals Take your medications as prescribed Follow your dietary instruction Follow activity as directed Wean yourself off of methadone under the care of your primary care provider. Also discussed with her provider the possibility of starting a medication known as lisinopril or similar meds to better restore pumping action of your heart. Keep your appointments as scheduled Take your immunizations and boosters as scheduled If your symptoms worsen call your PCP, if no PCP go to Urgent Care Center or Emergency Room Smoking is Dangerous to Your Health. Avoid second hand smoke Call the 24-hour hour crisis hotline for domestic abuse at Jas Lino MD Dec 13, 2016 13:24
--- NOTE | 2016-12-13 16:52 | HHI.DS ---
Discharge Summary Admission Date Dec 11, 2016 at 17:56 Discharge Date: Dec 13, 2016 Admitting Diagnosis bradycardia, CP, bigeminy (1) Hypothyroidism ICD Code: E03.9 Procedures None Brief History - From Admission 41-year-old female with past medical history of hypothyroidism, ADA, GERD, bipolar, and history of opiate abuse who was sent by PCP for bradycardia. The patient establish with [facility]. She is noted to have a heart rate of 38 at the time. It had been recommended that she go to the ED, but she wanted to go to her outpatient psychiatrist appointment first. She states that she went and saw her psychiatrist and they have noted that her heart rate was 40 that time and also recommended she come to the ED. The patient initially came to the ED today and heart rate was 38 upon presentation. The patient states that she's been feeling lightheaded for the last few days and yesterday felt like she was when the pass out. She states her symptoms are worse with standing. She states that she's been on her period for the last 3 days, normally feels a little bit dizzy with standing when she is on her period but not so badly. The patient has been off of her thyroid medications for several months and got her prescription refilled today. She is also on methadone for history of substance abuse, has been clean for 3 years. She states that she has been tapering methadone 10 mg every 2 weeks, just decreased to 140 mg daily today. Per ED report, patient's heart rate has been running 50 60s, but palpably has been 30 and 40s and she was noted to have intermittent episodes of bigeminy. She states that she felt short of breath earlier, but attributed it to her severe anxiety. She denies any chest pain. CBC/BMP: 12/12/16 0425 12/12/16 0425 Significant Findings Laboratory Tests Test 12/11/16 12/11/16 12/11/16 12/12/16 14:45 18:20 22:54 04:25 Red Blood Count 3.92 MIL/MM3 3.61 MIL/MM3 (4.00-5.30) (4.00-5.30) Hemoglobin 10.1 GM/DL 9.7 GM/DL (11.6-15.3) (11.6-15.3) Hematocrit 31.3 % 28.9 % (35.0-46.0) (35.0-46.0) Mean Corpuscular Volume 79.8 FL 79.9 FL (80.0-100.0) (80.0-100.0) Mean Corpuscular Hemoglobin 25.7 PG 26.8 PG (27.0-34.0) (27.0-34.0) Red Cell Distribution Width 22.6 % 22.9 % (11.6-17.2) (11.6-17.2) Creatinine 1.62 MG/DL 1.37 MG/DL (0.50-1.00) (0.50-1.00) Estimat Glomerular Filtration 35 ML/MIN (>89) 42 ML/MIN (>89) Rate Troponin I LESS THAN 0.02 LESS THAN 0.02 LESS THAN 0.02 NG/ML NG/ML NG/ML (0.02-0.05) (0.02-0.05) (0.02-0.05) Thyroid Stimulating Hormone GREATER THAN 3rd Gen 100.000 uIU/ML (0.358-3.740) Lymphocytes (%) (Auto) 51.3 % (9.0-44.0) Eosinophils (%) (Auto) 4.8 % (0.0-4.0) Ovalocytes 1+ (NORMAL) Acanthocytes 1+ (NORMAL) Calcium Level 7.9 MG/DL (8.5-10.1) Iron Level 37 MCG/DL (50-170) Percent Iron Saturation 9.5 % (20-50) Ferritin 5 NG/ML (8-252) Imaging Last Impressions Chest X-Ray 12/11/16 1433 Signed Impressions: Service Date/Time: December 16:12 - CONCLUSION: 1. No acute findings. Minimal basal atelectasis. Anish Jimenez MD PE at Discharge GENERAL: Resting comfortably, ambulating well with no signs of gait instability EYES: No scleral icterus. No injection or drainage. CARDIOVASCULAR: Regular rate and rhythm without murmurs, gallops, or rubs. RESPIRATORY: Breath sounds equal bilaterally. No accessory muscle use. GASTROINTESTINAL: Abdomen soft, non-tender, nondistended. MUSCULOSKELETAL: No cyanosis, or edema. Hospital Course Patient was admitted on telemetry. Cardiology was consulted, patient's bradycardia improved drastically with appropriate supplementation of Synthroid since her TSH was found to be over 100,000.. Patient was able to ambulate within 36 hours of medication management, had returned to baseline. Cardiology cleared patient for discharge with no need for procedural intervention. Patient understood that she needed to take her medication appropriately and follow up with her PCP for control refills. Patient was also given IV iron for supplementation due to her anemia. Patient had met maximum benefit from hospitalization and is clinically stable for discharge. Pt Condition on Discharge: Stable Discharge Disposition: Discharge Home Discharge Time: <= 30 minutes Discharge Instructions DIET: Follow Instructions for: As Tolerated, No Restrictions Activities you can perform: Regular-No Restrictions Follow up Referrals: PCP Follow-up - 10 Days Continued Medications: Clonazepam (Klonopin) 1 Mg Tab 1 MG PO HS #30 Ref 0 TAB Ferrous Sulfate (Feosol) 200 Mg Tab 200 MG PO DAILY Nutritional Supplement #30 Ref 0 TAB Levothyroxine (Synthroid) 200 Mcg Tab 200 MCG PO DAILY Thyroid #30 Ref 0 TAB Methadone (Methadone) 10 Mg Tab 10 MG PO DAILY Ref 0 TAB Pantoprazole (Protonix) 40 Mg Tab 40 MG PO DAILY Reflux #30 Ref 0 TAB Quetiapine (Seroquel) 300 Mg Tab 300 MG PO BID #60 Ref 0 TAB Jas Lino MD Dec 13, 2016 16:52
== END 2016-12-13 14:23 | disposition home or self-care (01) | DRG 644 ==
LOC: NEPE 14:23 → NEDA 17:33 → OBSVTOIN 17:56 → HCIN 22:02 → HCIS 12-12 10:23
PROVIDERS: ADMIT Hospitalist; ATTEND Hospitalist
DX: E03.9 Hypothyroidism, unspecified (principal); N17.9 Acute kidney failure, unspecified; R00.1 Bradycardia, unspecified; F11.10 Opioid abuse, uncomplicated; F31.9 Bipolar disorder, unspecified; D50.0 Iron deficiency anemia secondary to blood loss (chronic); N92.0 Excessive and frequent menstruation with regular cycle; K21.9 Gastro-esophageal reflux disease without esophagitis; Z86.73 Personal history of transient ischemic attack (TIA), and cerebral infarction without residual deficits; K21.0 Gastro-esophageal reflux disease with esophagitis
CPT/HCPCS: 71010; 80048; 80053; 82550; 82552; 82728; 83540; 83550; 83735; 84443; 84484; 84703; 85025; 93005; 93306; 96374; J1756; J2060; J2405; J7030; Q0177

== ENCOUNTER 2016-12-16 06:45 | Emergency (ER) | payer MEDICAID ==
[~2016-12-16] VITALS: Ht 165.1 cm; Wt 72.0 kg
[~2016-12-16 06:45] MED LIST changes: -BENT20TA OR; -BUSP15TA PO; -DOXY100T PO; -HYDR50 PO; -LEVO175T2 PO; -LORT5TAB PO; -OMPR20CCR PO; -PROM25TA5 PO; -TRAZ150T75 PO
[2016-12-16 06:49] VITALS: BP 143/72; PULSE 68; RESP 18; TEMP 97.3; O2SAT 98
--- NOTE | 2016-12-16 07:24 | PD ---
HPI Chief Complaint: Cardiac Complaint Time Seen by Provider: 07:12 Travel History International Travel<30 days: No Contact w/Intl Traveler<30days: No Traveled to known affect area: No History of Present Illness HPI 41yo F with PMH of hypothyroidism, GERD, bipolar disorder presents to the ED with multiple complaints. Pt states she feels like she cant breathe, feels like her body is sincere and tight, has a left sided headache and midsternal chest pain as well. +Cough. Pt was recently admitted for bradycardia on 12/11/16 and has been back on her thyroid medication. Pt states she took her methadone this morning at 6am. Denies any fever, abdominal pain, focal weakness or numbness. PFSH Past Medical History Anemia: Yes Arthritis: No Asthma: No Autoimmune Disease: No Blood Disorders: No Anxiety: Yes Depression: Yes Heart Rhythm Problems: No Cancer: No Cardiovascular Problems: No High Cholesterol: No Chest Pain: No Congestive Heart Failure: No COPD: No Cerebrovascular Accident: Yes (TIA 1997) Diabetes: No Diminished Hearing: No Endocrine: Yes Gastrointestinal Disorders: Yes (GASTROPARESIS/ BARRETTS ESOPHAGUS) GERD: Yes Glaucoma: No Genitourinary: Yes (CHRONIC PID PER PT) Hepatitis: No Hiatal Hernia: No Hypertension: No Immune Disorder: No Implanted Vascular Access Dvce: Yes Kidney Stones: No Musculoskeletal: No Neurologic: Yes Psychiatric: Yes Reproductive: No Respiratory: No Myocardial Infarction: No Renal Failure: No Sleep Apnea: No Thyroid Disease: Yes (hypothyroidism) Ulcer: No Tetanus Vaccination: > 5 Years ?: Not : 2 Para: 2 Miscarriage: 2 : 0 Tubal Ligation: Yes Past Surgical History Abdominal Surgery: No Appendectomy: No Cardiac Surgery: No Section: Yes (X2) Cholecystectomy: No Ear Surgery: No Endocrine Surgery: No Eye Surgery: No Genitourinary Surgery: No Gynecologic Surgery: Yes (TUBAL LIGATION & C- SECTION X 2) Oral Surgery: Yes (FULL MOUTH EXTRACTION / tonsils removed) Thoracic Surgery: No Tonsillectomy: Yes Other Surgery: Yes Social History Alcohol Use: No Tobacco Use: No Substance Use: Yes Allergies-Medications (Allergen,Severity, Reaction): Coded Allergies: No Known Allergies (Verified , 12/16/16) Reported Meds & Prescriptions Reported Meds & Active Scripts Active Feosol (Ferrous Sulfate) 200 Mg Tab 200 Mg PO DAILY Synthroid (Levothyroxine Sodium) 200 Mcg Tab 200 Mcg PO DAILY Phenergan (Promethazine HCl) 25 Mg Tablet 25 Mg PO ONCE Reported Protonix (Pantoprazole Sodium) 40 Mg Tab 40 Mg PO DAILY Methadone (Methadone HCl) 10 Mg Tab 10 Mg PO DAILY Klonopin (Clonazepam) 1 Mg Tab 1 Mg PO HS Seroquel (Quetiapine Fumarate) 300 Mg Tab 300 Mg PO BID Review of Systems Except as stated in HPI: all other systems reviewed are Neg Physical Exam Narrative GENERAL: 41yo F anxious appearing. SKIN: Focused skin assessment warm/dry. HEAD: Atraumatic. Normocephalic. EYES: Pupils equal and round at 3mm bilaterally. EOMI. No scleral icterus. No injection or drainage. ENT: No nasal bleeding or discharge. Mucous membranes pink and moist. NECK: Trachea midline. No JVD. CARDIOVASCULAR: Regular rate and rhythm. No murmur appreciated. RESPIRATORY: No accessory muscle use. Clear to auscultation. Breath sounds equal bilaterally. GASTROINTESTINAL: Abdomen soft, non-tender, nondistended. No rebound tenderness or guarding. MUSCULOSKELETAL: No obvious deformities. No clubbing. No cyanosis. No edema. NEUROLOGICAL: Awake and alert. No obvious cranial nerve deficits. Motor grossly within normal limits. Normal speech. PSYCHIATRIC: Anxious, tearful. Data Data Last Documented VS Vital Signs Date Time Temp Pulse Resp B/P Pulse Ox O2 Delivery O2 Flow Rate FiO2 12/16/16 08:47 16 12/16/16 07:42 83 127/92 92 Room Air 12/16/16 06:49 97.3 Orders Complete Blood Count With Diff (12/16/16 07:19) Basic Metabolic Panel (Bmp) (12/16/16 07:19) Creatine Kinase (Cpk) (12/16/16 07:19) Magnesium (Mg) (12/16/16 07:19) Troponin I (12/16/16 07:19) Chest, Single Ap (12/16/16 ) Thyroid Stimulating Hormone (12/16/16 07:19) Thyroxine (T4) (12/16/16 07:19) Ketorolac Inj (Toradol Inj) (12/16/16 07:30) Ondansetron Inj (Zofran Inj) (12/16/16 07:30) Electrocardiogram (12/16/16 ) Labs Laboratory Tests Test 12/16/16 07:35 White Blood Count 8.4 TH/MM3 Red Blood Count 3.99 MIL/MM3 Hemoglobin 10.8 GM/DL Hematocrit 31.7 % Mean Corpuscular Volume 79.5 FL Mean Corpuscular Hemoglobin 27.1 PG Mean Corpuscular Hemoglobin 34.1 % Concent Red Cell Distribution Width 23.3 % Platelet Count 202 TH/MM3 Mean Platelet Volume 9.6 FL Neutrophils (%) (Auto) 76.9 % Lymphocytes (%) (Auto) 19.7 % Monocytes (%) (Auto) 2.0 % Eosinophils (%) (Auto) 1.2 % Basophils (%) (Auto) 0.2 % Neutrophils # (Auto) 6.5 TH/MM3 Lymphocytes # (Auto) 1.7 TH/MM3 Monocytes # (Auto) 0.2 TH/MM3 Eosinophils # (Auto) 0.1 TH/MM3 Basophils # (Auto) 0.0 TH/MM3 CBC Comment DIFF FINAL Differential Comment Sodium Level 140 MEQ/L Potassium Level 3.3 MEQ/L Chloride Level 101 MEQ/L Carbon Dioxide Level 30.0 MEQ/L Anion Gap 9 MEQ/L Blood Urea Nitrogen 8 MG/DL Creatinine 1.57 MG/DL Estimat Glomerular Filtration 36 ML/MIN Rate Random Glucose 83 MG/DL Calcium Level 9.6 MG/DL Magnesium Level 1.8 MG/DL Total Creatine Kinase 149 U/L Troponin I LESS THAN 0.02 NG/ML Thyroxine (T4) 6.4 MCG/DL Thyroid Stimulating Hormone GREATER THAN 3rd Gen 100.000 uIU/ML MDM Medical Decision Making Medical Screen Exam Complete: Yes Emergency Medical Condition: Yes Interpretation(s) EKG: NSR 97bpm. Normal axis. Flattened T waves. Differential Diagnosis Anxiety vs. viral syndrome vs. electrolyte abnormalities vs. atypical chest pain Narrative Course 41yo F here with multiple complaints. Pt appears very anxious and chest pain is very atypical. Do not think this is cardiac. Labs reviewed, no leukocytosis. H/H low at 10.8/31.7 but this is baseline. K: 3.3, will replace orally. Creatinine 1.57 but this is her baseline. Troponin negative. TSH greater than 100. Normal T4. Pt has appointment with PMD to follow up on this. CXR showed mild airspace disease left base. Pt given toradol and zofran. Reevaluated at bedside and headache and chest pain has resolved. Pt feels better and wants to go home. Return precautions given. Diagnosis Primary Impression: Atypical chest pain Patient Instructions: General Instructions Departure Forms: Tests/Procedures Additional Instructions: Please follow up with your PMD for your hypothyroidism. Return to the ED if symptoms worsen. Med/Other Pt SpecificInfo: No Change to Meds Disposition: 01 DISCHARGE HOME Condition: Stable Eliza De León DO Dec 16, 2016 07:24
[2016-12-16] MEDS ORDERED: ONDANSETRON HCL 4 MG/2 ML VIAL IV PUSH ONE (07:30)
[2016-12-16] MEDS ORDERED: KETOROLAC TROMETHAMINE 30 MG/ML (IVP) VIAL IV PUSH ONE (07:30)
[2016-12-16 07:42] VITALS: BP 127/92; PULSE 83; RESP 16; O2SAT 92
[2016-12-16 07:55] LABS: AUTOMATED NEUTROPHIL # 6.5 TH/MM3 (1.8-7.7); BASOPHIL % 0.2 % (0.0-2.0); EOSINOPHIL # 0.1 TH/MM3 (0-0.4); EOSINOPHIL % 1.2 % (0.0-4.0); HEMATOCRIT 31.7 % (35.0-46.0); HEMO FLAGS DIFF FINAL; LYMPH % 19.7 % (9.0-44.0); LYMPHOCYTE # 1.7 TH/MM3 (1.0-4.8); MEAN CELL VOLUME 79.5 FL (80.0-100.0); MEAN CORPUSCULAR HEMOGLOBIN 27.1 PG (27.0-34.0); MEAN CORPUSCULAR HGB CONC 34.1 % (32.0-36.0); NEUT % 76.9 % (16.0-70.0); PLATELET COUNT 202 TH/MM3 (150-450); RED BLOOD COUNT 3.99 MIL/MM3 (4.00-5.30); RED CELL DISTRIBUTION WIDTH 23.3 % (11.6-17.2); WHITE BLOOD COUNT 8.4 TH/MM3 (4.0-11.0)
[2016-12-16 08:16] LABS: ANION GAP 9 MEQ/L (5-15); BLOOD UREA NITROGEN 8 MG/DL (7-18); CHLORIDE 101 MEQ/L (98-107); GLOMERULAR FILTRATION RATE 36 ML/MIN (>89); MAGNESIUM 1.8 MG/DL (1.5-2.5); POTASSIUM 3.3 MEQ/L (3.5-5.1); SODIUM (NA) 140 MEQ/L (136-145); THYROXINE (T4) 6.4 MCG/DL (4.8-13.9)
[2016-12-16 08:25] LABS: CREATINE KINASE 149 U/L (26-192)
--- NOTE | 2016-12-16 08:28 | RADRPT ---
EXAM DATE/TIME: 12/16/2016 07:38 [facility] COMPARISON: CHEST SINGLE AP, December 11, 2016, 16:12. INDICATIONS : Shortness of breath. MEDICAL HISTORY : pt states taht she was dx "bradycardia" 5 days ago SURGICAL HISTORY : Tubal ligation. section. Tonsillectomy ENCOUNTER: Initial ACUITY: 4 - 6 days PAIN SCORE: 2/10 LOCATION: Bilateral upper chest FINDINGS: Mild airspace disease without significant consolidation has developed in the left lung base. Right anamika ng remains clear. Heart and mediastinal structures are stable. CONCLUSION: Mild airspace disease left base Otherwise stable chest. Derek Brown MD on December 16, 2016 at 8:25 Board Certified Radiologist. This report was verified electronically.
[2016-12-16 08:47] VITALS: RESP 16
[2016-12-16] MEDS ORDERED: POTASSIUM CHLORIDE 20 MEQ CONTROLLED RELEASE TAB PO ONE (09:45)
--- NOTE | 2016-12-16 15:01 | EKG ---
Date Performed: 12/16/2016 Time Performed: 07:00:54 PTAGE: 41 years EKG: Sinus rhythm NONSPECIFIC T-WAVE ABNORMALITY BORDERLINE ECG PREVIOUS TRACING : 12/14/2016 12.11 DOCTOR: James Bettencourt Interpretating Date/Time 12/16/2016 14:56:10
[2017-02-13] MEDS ORDERED: PROT40TA PO (09:44)
[2017-02-13] MEDS ORDERED: LEVO.2 PO (09:44)
[2017-02-17] MEDS ORDERED: SULF1TAB23 PO (16:04)
== END 2016-12-16 09:56 | disposition home or self-care (01) ==
LOC: NEPC 06:45
DX: R07.89 Other chest pain (principal); R05 Cough; E03.9 Hypothyroidism, unspecified; K21.9 Gastro-esophageal reflux disease without esophagitis; F31.9 Bipolar disorder, unspecified; D64.9 Anemia, unspecified; F41.9 Anxiety disorder, unspecified; K31.84 Gastroparesis; Z86.73 Personal history of transient ischemic attack (TIA), and cerebral infarction without residual deficits
CPT/HCPCS: 71010; 80048; 82550; 83735; 84436; 84443; 84484; 85025; 93005; 96374; 96375; 99285; J1885; J2405

== ENCOUNTER 2017-01-17 09:33 | Emergency (ER) | payer MEDICAID ==
[~2017-01-17] VITALS: Ht 165.1 cm; Wt 75.0 kg
[2017-01-17 09:35] VITALS: BP 130/80; PULSE 86; RESP 20; TEMP 98.4; O2SAT 94
[2017-01-17] MEDS ORDERED: SODIUM CHLOR 0.9% 1000 ML INJ 1,000 ML IV SCH (09:52)
[2017-01-17] MEDS ORDERED: ONDANSETRON HCL 4 MG/2 ML VIAL IVP ONE (10:00)
[2017-01-17] MEDS ORDERED: FAMOTIDINE 20 MG/2 ML VIAL IV PUSH ONE (10:00)
[2017-01-17] MEDS ORDERED: SODIUM CHLORIDE 0.9% FLUSH 10 ML FLUSH IV FLUSH PRN (10:00)
[2017-01-17] MEDS ORDERED: KETOROLAC TROMETHAMINE 30 MG/ML (IVP) VIAL IVP ONE (10:00)
--- NOTE | 2017-01-17 10:13 | PD ---
HPI Chief Complaint: GI Complaint Time Seen by Provider: 09:48 Travel History International Travel<30 days: No Contact w/Intl Traveler<30days: No Traveled to known affect area: No History of Present Illness HPI The patient is a 41-year-old female who presents emergency department for headache, nausea, vomiting, and body aches. The patient states her symptoms started last night with nausea and vomiting. She then developed diffuse body aches and a subsequent headache. The headache came on gradually, is diffuse, throbbing, and not associated with any photophobia or vision changes. She is unsure if she's had any fever, does know some intermittent chills without sweats. She does note nausea and vomiting but denies any diarrhea or abdominal pain. The patient does have a history of anxiety and took a Klonopin prior to arrival, also takes methadone on a daily basis. The patient did take her methadone earlier today. The patient denies any acute chest pain or shortness of breath. PFSH Past Medical History Anemia: Yes Arthritis: No Asthma: No Autoimmune Disease: No Blood Disorders: No Anxiety: Yes Depression: Yes Heart Rhythm Problems: No Cancer: No Cardiovascular Problems: No High Cholesterol: No Chest Pain: No Congestive Heart Failure: No COPD: No Cerebrovascular Accident: Yes (TIA 1997) Diabetes: No Diminished Hearing: No Endocrine: Yes Gastrointestinal Disorders: Yes (GASTROPARESIS/ BARRETTS ESOPHAGUS) GERD: Yes Glaucoma: No Genitourinary: Yes (CHRONIC PID PER PT) Hepatitis: No Hiatal Hernia: No Hypertension: No Immune Disorder: No Implanted Vascular Access Dvce: Yes Kidney Stones: No Musculoskeletal: No Neurologic: Yes Psychiatric: Yes Reproductive: No Respiratory: No Myocardial Infarction: No Renal Failure: No Sleep Apnea: No Thyroid Disease: Yes (hypothyroidism) Ulcer: No Tetanus Vaccination: Unknown ?: Not LMP: 01/10/17 : 2 Para: 2 Miscarriage: 2 : 0 Tubal Ligation: Yes Past Surgical History Abdominal Surgery: No Appendectomy: No Cardiac Surgery: No Section: Yes (X2) Cholecystectomy: No Ear Surgery: No Endocrine Surgery: No Eye Surgery: No Genitourinary Surgery: No Gynecologic Surgery: Yes (TUBAL LIGATION & C- SECTION X 2) Oral Surgery: Yes (FULL MOUTH EXTRACTION / tonsils removed) Thoracic Surgery: No Tonsillectomy: Yes Other Surgery: Yes Social History Alcohol Use: No Tobacco Use: No Substance Use: No Allergies-Medications (Allergen,Severity, Reaction): Coded Allergies: No Known Allergies (Verified , 12/25/16) Reported Meds & Prescriptions Reported Meds & Active Scripts Active Feosol (Ferrous Sulfate) 200 Mg Tab 200 Mg PO DAILY Synthroid (Levothyroxine Sodium) 200 Mcg Tab 200 Mcg PO DAILY Reported Protonix (Pantoprazole Sodium) 40 Mg Tab 40 Mg PO DAILY Methadone (Methadone HCl) 10 Mg Tab 130 Mg PO DAILY Klonopin (Clonazepam) 1 Mg Tab 1 Mg PO HS Seroquel (Quetiapine Fumarate) 300 Mg Tab 300 Mg PO BID Review of Systems Except as stated in HPI: all other systems reviewed are Neg General / Constitutional: Positive: Chills, No: Fever Eyes: No: Photophobia HENT: Positive: Headaches, No: Sore Throat Cardiovascular: No: Chest Pain or Discomfort Respiratory: No: Shortness of Breath Gastrointestinal: Positive: Nausea, Vomiting, No: Diarrhea, Abdominal Pain Genitourinary: No: Dysuria Musculoskeletal: Positive: Myalgias Psychiatric: Positive: Anxiety Physical Exam Narrative GENERAL: Awake, alert, pleasant 41 year-old female who appears her stated age and is in no acute respiratory distress. SKIN: Focused skin assessment warm/dry. HEAD: Atraumatic. Normocephalic. EYES: Pupils equal and round. Pupils are 3 mm bilateral and reactive. Green colored contact lens in the left eye, blue iris on the right. ENT: No nasal bleeding or discharge. Upper and lower dentures noted. NECK: Trachea midline. No JVD. No meningeal signs noted. CARDIOVASCULAR: Regular rate and rhythm. No murmur appreciated. RESPIRATORY: No accessory muscle use. Clear to auscultation. Breath sounds equal bilaterally. GASTROINTESTINAL: Abdomen soft, non-tender, nondistended. No rebound tenderness. MUSCULOSKELETAL: No obvious deformities. No clubbing. No cyanosis. No edema. NEUROLOGICAL: Awake and alert. No obvious cranial nerve deficits. Motor grossly within normal limits. Normal speech. Nonfocal on exam. PSYCHIATRIC: Appropriate mood and affect; insight and judgment normal. Data Data Last Documented VS Vital Signs Date Time Temp Pulse Resp B/P (MAP) Pulse Ox O2 Delivery O2 Flow Rate FiO2 01/17/17 10:38 98 Room Air 01/17/17 09:35 98.4 86 20 Orders Orders Complete Blood Count With Diff (01/17/17 09:52) Comprehensive Metabolic Panel (01/17/17 09:52) Lipase (01/17/17 09:52) Urinalysis - C+S If Indicated (01/17/17 09:52) Iv Access Insert/Monitor (01/17/17 09:52) Ecg Monitoring (01/17/17 09:52) Oximetry (01/17/17 09:52) Ondansetron Inj (Zofran Inj) (01/17/17 10:00) Sodium Chlor 0.9% 1000 Ml Inj (Ns 1000 M (01/17/17 09:52) Sodium Chloride 0.9% Flush (Ns Flush) (01/17/17 10:00) Famotidine Inj (Pepcid Inj) (01/17/17 10:00) Ketorolac Inj (Toradol Inj) (01/17/17 10:00) Ed Urine Pregnancytest Poc (01/17/17 09:52) Influenzae A/B Antigen (01/17/17 09:52) Labs Laboratory Tests Test 01/17/17 10:30 01/17/17 11:00 White Blood Count 7.0 TH/MM3 Red Blood Count 3.87 MIL/MM3 Hemoglobin 11.1 GM/DL Hematocrit 33.4 % Mean Corpuscular Volume 86.3 FL Mean Corpuscular Hemoglobin 28.5 PG Mean Corpuscular Hemoglobin Concent 33.1 % Red Cell Distribution Width 17.0 % Platelet Count 174 TH/MM3 Mean Platelet Volume 9.7 FL Neutrophils (%) (Auto) 75.4 % Lymphocytes (%) (Auto) 16.5 % Monocytes (%) (Auto) 5.8 % Eosinophils (%) (Auto) 2.0 % Basophils (%) (Auto) 0.3 % Neutrophils # (Auto) 5.3 TH/MM3 Lymphocytes # (Auto) 1.2 TH/MM3 Monocytes # (Auto) 0.4 TH/MM3 Eosinophils # (Auto) 0.1 TH/MM3 Basophils # (Auto) 0.0 TH/MM3 CBC Comment DIFF FINAL Differential Comment Blood Urea Nitrogen 10 MG/DL Creatinine 1.06 MG/DL Random Glucose 109 MG/DL Total Protein 6.3 GM/DL Albumin 2.9 GM/DL Calcium Level 8.0 MG/DL Alkaline Phosphatase 84 U/L Aspartate Amino Transf (AST/SGOT) 22 U/L Alanine Aminotransferase (ALT/SGPT) 32 U/L Total Bilirubin 0.6 MG/DL Sodium Level 138 MEQ/L Potassium Level 4.0 MEQ/L Chloride Level 107 MEQ/L Carbon Dioxide Level 24.3 MEQ/L Anion Gap 7 MEQ/L Estimat Glomerular Filtration Rate 57 ML/MIN Lipase 111 U/L Urine Color YELLOW Urine Turbidity HAZY Urine pH 6.0 Urine Specific [place] 1.023 Urine Protein TRACE mg/dL Urine Glucose (UA) NEG mg/dL Urine Ketones NEG mg/dL Urine Occult Blood MOD Urine Nitrite NEG Urine Bilirubin NEG Urine Urobilinogen LESS THAN 2.0 MG/DL Urine Leukocyte Esterase TRACE Urine RBC 1 /hpf Urine WBC 4 /hpf Urine Squamous Epithelial Cells 4 /hpf Urine Mucus FEW /lpf Microscopic Urinalysis Comment CULT NOT INDICATED MDM Medical Decision Making Medical Screen Exam Complete: Yes Emergency Medical Condition: Yes Medical Record Reviewed: Yes Interpretation(s) Date/Time Source Procedure Growth Status 01/17/17 10:30 Nasal Aspirate Influenza Types A,B Antigen ([facility]) - Final NEGATIVE FOR FLU A AND B ANTIGEN.... Complete Laboratory Tests Test 01/17/17 10:30 01/17/17 11:00 White Blood Count 7.0 TH/MM3 Red Blood Count 3.87 MIL/MM3 Hemoglobin 11.1 GM/DL Hematocrit 33.4 % Mean Corpuscular Volume 86.3 FL Mean Corpuscular Hemoglobin 28.5 PG Mean Corpuscular Hemoglobin Concent 33.1 % Red Cell Distribution Width 17.0 % Platelet Count 174 TH/MM3 Mean Platelet Volume 9.7 FL Neutrophils (%) (Auto) 75.4 % Lymphocytes (%) (Auto) 16.5 % Monocytes (%) (Auto) 5.8 % Eosinophils (%) (Auto) 2.0 % Basophils (%) (Auto) 0.3 % Neutrophils # (Auto) 5.3 TH/MM3 Lymphocytes # (Auto) 1.2 TH/MM3 Monocytes # (Auto) 0.4 TH/MM3 Eosinophils # (Auto) 0.1 TH/MM3 Basophils # (Auto) 0.0 TH/MM3 CBC Comment DIFF FINAL Differential Comment Blood Urea Nitrogen 10 MG/DL Creatinine 1.06 MG/DL Random Glucose 109 MG/DL Total Protein 6.3 GM/DL Albumin 2.9 GM/DL Calcium Level 8.0 MG/DL Alkaline Phosphatase 84 U/L Aspartate Amino Transf (AST/SGOT) 22 U/L Alanine Aminotransferase (ALT/SGPT) 32 U/L Total Bilirubin 0.6 MG/DL Sodium Level 138 MEQ/L Potassium Level 4.0 MEQ/L Chloride Level 107 MEQ/L Carbon Dioxide Level 24.3 MEQ/L Anion Gap 7 MEQ/L Estimat Glomerular Filtration Rate 57 ML/MIN Lipase 111 U/L Urine Color YELLOW Urine Turbidity HAZY Urine pH 6.0 Urine Specific [place] 1.023 Urine Protein TRACE mg/dL Urine Glucose (UA) NEG mg/dL Urine Ketones NEG mg/dL Urine Occult Blood MOD Urine Nitrite NEG Urine Bilirubin NEG Urine Urobilinogen LESS THAN 2.0 MG/DL Urine Leukocyte Esterase TRACE Urine RBC 1 /hpf Urine WBC 4 /hpf Urine Squamous Epithelial Cells 4 /hpf Urine Mucus FEW /lpf Microscopic Urinalysis Comment CULT NOT INDICATED Differential Diagnosis Differential diagnosis includes influenza, viral syndrome, gastritis, gastroenteritis, opiate withdrawal. Narrative Course IV was established, labs are drawn and sent, and the patient was placed on cardiac telemetry monitoring and continuous pulse oximetry monitoring. The patient was administered Toradol, Zofran, and IV fluids. UA was sent to lab. Influenza screen was sent to lab. Bedside UA test was negative. UA is unremarkable. Labs are unremarkable. The patient was reevaluated 11:45 AM, her symptoms had significant improvement. She will be discharged home on Phenergan, is advised to take Tylenol and or Motrin as needed for pain and fever and a follow-up with her primary physician. Diagnosis Primary Impression: Viral syndrome Additional Impression: Nausea & vomiting Qualified Codes: R11.2 - Nausea with vomiting, unspecified Patient Instructions: General Instructions Additional Instructions: Medications as directed. Clear liquid diet and advance as tolerated. Alternate Tylenol and Motrin for pain and fever. Follow-up with your primary physician. Med/Other Pt SpecificInfo: Prescription(s) given Scripts Promethazine (Phenergan) 25 Mg Tablet 25 MG PO ONCE for Nausea/Vomiting, #10 TAB 0 Refills Prov: Preet Gallegos MD 01/17/17 Disposition: 01 DISCHARGE HOME Condition: Stable Preet Gallegos MD Jan 17, 2017 10:13
[2017-01-17 10:38] VITALS: O2SAT 98
[2017-01-17 10:50] LABS: AUTOMATED NEUTROPHIL # 5.3 TH/MM3 (1.8-7.7); BASOPHIL % 0.3 % (0.0-2.0); EOSINOPHIL # 0.1 TH/MM3 (0-0.4); HEMATOCRIT 33.4 % (35.0-46.0); HEMO FLAGS DIFF FINAL; LYMPH % 16.5 % (9.0-44.0); LYMPHOCYTE # 1.2 TH/MM3 (1.0-4.8); MEAN CELL VOLUME 86.3 FL (80.0-100.0); MEAN CORPUSCULAR HEMOGLOBIN 28.5 PG (27.0-34.0); MEAN CORPUSCULAR HGB CONC 33.1 % (32.0-36.0); MONO % 5.8 % (0.0-8.0); NEUT % 75.4 % (16.0-70.0); PLATELET COUNT 174 TH/MM3 (150-450); RED BLOOD COUNT 3.87 MIL/MM3 (4.00-5.30)
[2017-01-17 11:05] LABS: ANION GAP 7 MEQ/L (5-15); AST (GOT) 22 U/L (15-37); BICARBONATE 24.3 MEQ/L (21.0-32.0); BLOOD UREA NITROGEN 10 MG/DL (7-18); CHLORIDE 107 MEQ/L (98-107); GLOMERULAR FILTRATION RATE 57 ML/MIN (>89); SODIUM (NA) 138 MEQ/L (136-145)
[2017-01-17 11:06] LABS: ALT (GPT) 32 U/L (10-53)
[2017-01-17 11:09] LABS: ALKALINE PHOSPHATASE 84 U/L (45-117); TOTAL BILIRUBIN ADULT 0.6 MG/DL (0.2-1.0)
[2017-01-17 11:30] LABS: BLOOD, URINE MOD (NEG); COMMENT (UR) CULT NOT INDICATED; CULTURE IF INDICATED CULT NOT INDICATED; GLUCOSE,URINE NEG (NEG); KETONE, URINE NEG (NEG); MUCUS URINE FEW /lpf (OCC); NITRITE,URINE NEG (NEG); SQUAMOUS EPITHELIAL CELL URINE 4 /hpf (0-5); URINE COLOR YELLOW (YELLW/STRAW)
[2017-01-17 11:57] VITALS: RESP 16
[2017-01-17] MEDS ORDERED: PROM25TA10 PO (11:59)
[2017-02-13] MEDS ORDERED: LEVO.2 PO (09:44)
[2017-02-13] MEDS ORDERED: PROT40TA PO (09:44)
[2017-02-17] MEDS ORDERED: SULF1TAB23 PO (16:04)
== END 2017-01-17 12:22 | disposition home or self-care (01) ==
LOC: NEPD 09:33
DX: B34.9 Viral infection, unspecified (principal); R11.2 Nausea with vomiting, unspecified; R51 Headache; D64.9 Anemia, unspecified; F41.9 Anxiety disorder, unspecified; K21.9 Gastro-esophageal reflux disease without esophagitis; K31.84 Gastroparesis; E03.9 Hypothyroidism, unspecified; Z86.73 Personal history of transient ischemic attack (TIA), and cerebral infarction without residual deficits
CPT/HCPCS: 80053; 81001; 83690; 84703; 85025; 87804; 96361; 96374; 96375; 99284; J1885; J2405; J7030

== ENCOUNTER 2017-02-18 12:13 | Observation (INO) | payer MEDICAID ==
[~2017-02-18] VITALS: Ht 165.1 cm; Wt 75.0 kg
[2017-02-18] VITALS (9 sets, daily range): BP systolic 102–154; BP diastolic 55–77; PULSE 51–96; RESP 15–26; TEMP 97.6–98.2; O2SAT 94–98
[~2017-02-18 12:13] MED LIST changes: -PROM25TA10 PO; +SULF1TAB23 PO
--- NOTE | 2017-02-18 12:23 | PD ---
Physical Exam Time Seen by Provider: 12:21 Narrative 41-year-old female sent by her padder cushion for low heart rate yesterday of 40bpm. Has history of low heart rate. Reports chest pain and shortness of breath. Is also complaining of a headache. Reports history of syncope one week ago. Reports dizziness with standing up. Patient seen in triage. Vital signs reviewed. Patient awaiting bed placement. Data Data Last Documented VS Vital Signs Date Time Temp Pulse Resp B/P (MAP) Pulse Ox O2 Delivery O2 Flow Rate FiO2 02/18/17 12:15 97.8 51 26 154/77 (102) 95 MDM Supervised Visit with CAMERON: Anabella García Feb 18, 2017 12:23
--- NOTE | 2017-02-18 12:53 | PD ---
HPI Chief Complaint: Cardiac Complaint Time Seen by Provider: 12:53 Travel History International Travel<30 days: No Contact w/Intl Traveler<30days: No Traveled to known affect area: No History of Present Illness HPI 41-year-old female came to the emergency room for chest pressure this morning. She points to her substernal area without any radiation. Pressure is 5 out of 10. Patient has had bradycardia on and off for past 2 months. She was supposed to follow up with cardiology for Holter monitoring but never did that. This morning when she started having the chest pressure she called the bonding agent's office and she was asked to come to the emergency room. No aggravating or relieving factors. She cannot attribute to any particular event that could have caused the pain. She had just gotten out of bed this morning when the pain started. She has some dizziness when she stands up but as per the patient she has had that for past 23 months and is not new. Currently in triage she did not have bradycardia. Rest of the vitals were within acceptable limits. She is complaining of some associated headache. [facility] Past Medical History Narrative Medical List of her past medical, surgical, social and family history is reviewed from the nursing note. Anemia: Yes Arthritis: No Asthma: No Autoimmune Disease: No Blood Disorders: No Anxiety: Yes Depression: Yes Heart Rhythm Problems: No Cancer: No Cardiovascular Problems: Yes High Cholesterol: No Chest Pain: No Congestive Heart Failure: No COPD: No Cerebrovascular Accident: Yes Diabetes: No Diminished Hearing: No Endocrine: Yes Gastrointestinal Disorders: Yes (GASTROPARESIS/ BARRETTS ESOPHAGUS) GERD: Yes Glaucoma: No Genitourinary: Yes (CHRONIC PID PER PT) Hepatitis: No Hiatal Hernia: No Hypertension: No Immune Disorder: No Implanted Vascular Access Dvce: Yes Kidney Stones: No Musculoskeletal: No Neurologic: Yes Psychiatric: Yes Reproductive: No Respiratory: No Myocardial Infarction: No Renal Failure: No Sleep Apnea: No Thyroid Disease: Yes (hypothyroidism) Ulcer: No ?: Not LMP: 02/11/17 : 2 Para: 2 Miscarriage: 2 : 0 Tubal Ligation: Yes Past Surgical History Abdominal Surgery: No Appendectomy: No Cardiac Surgery: No Section: Yes (X2) Cholecystectomy: No Ear Surgery: No Endocrine Surgery: No Eye Surgery: No Genitourinary Surgery: No Gynecologic Surgery: Yes (TUBAL LIGATION & C- SECTION X 2) Oral Surgery: Yes (FULL MOUTH EXTRACTION / tonsils removed) Thoracic Surgery: No Tonsillectomy: Yes Other Surgery: Yes Social History Alcohol Use: No Tobacco Use: No Substance Use: No Allergies-Medications (Allergen,Severity, Reaction): Coded Allergies: No Known Allergies (Verified , 02/18/17) Comments No known drug allergies. Reported Meds & Prescriptions Reported Meds & Active Scripts Active Synthroid (Levothyroxine Sodium) 200 Mcg Tab 200 Mcg PO DAILY Protonix (Pantoprazole Sodium) 40 Mg Tab 40 Mg PO BID Reported Sulfamethoxazole-Trimethoprim 800-160 Mg Tab 1 Tab PO BID Methadone (Methadone HCl) 10 Mg Tab 100 Mg PO DAILY Klonopin (Clonazepam) 1 Mg Tab 1 Mg PO HS Seroquel (Quetiapine Fumarate) 300 Mg Tab 300 Mg PO BID Narrative Medication List of her home medications reviewed from the nursing note. Review of Systems Except as stated in HPI: all other systems reviewed are Neg HENT: Positive: Headaches Cardiovascular: Positive: Chest Pain or Discomfort Physical Exam Narrative GENERAL: Awake, alert, anxious, no obvious distress SKIN: Focused skin assessment warm/dry. HEAD: Atraumatic. Normocephalic. EYES: Pupils equal and round. No scleral icterus. No injection or drainage. ENT: No nasal bleeding or discharge. Mucous membranes pink and moist. NECK: Trachea midline. No JVD. CARDIOVASCULAR: Regular rate and rhythm. No murmur appreciated. RESPIRATORY: No accessory muscle use. Clear to auscultation. Breath sounds equal bilaterally. GASTROINTESTINAL: Abdomen soft, non-tender, nondistended. Hepatic and splenic margins not palpable. MUSCULOSKELETAL: No obvious deformities. No clubbing. No cyanosis. No edema. NEUROLOGICAL: Awake and alert. No obvious cranial nerve deficits. Motor grossly within normal limits. Normal speech. PSYCHIATRIC: Appropriate mood and affect; insight and judgment normal. Data Data Last Documented VS Vital Signs Date Time Temp Pulse Resp B/P (MAP) Pulse Ox O2 Delivery O2 Flow Rate FiO2 02/18/17 13:55 67 15 98 Nasal Cannula 2.00 02/18/17 13:11 97.8 Orders Orders Electrocardiogram (02/18/17 12:25) Basic Metabolic Panel (Bmp) (02/18/17 12:25) Ckmb (Isoenzyme) Profile (02/18/17 12:25) Complete Blood Count With Diff (02/18/17 12:25) Magnesium (Mg) (02/18/17 12:25) Prothrombin Time / Inr (Pt) (02/18/17 12:25) Act Partial Throm Time (Ptt) (02/18/17 12:25) Troponin I (02/18/17 12:25) Chest, Single Ap (02/18/17 12:25) Ecg Monitoring (02/18/17 12:25) Iv Access Insert/Monitor (02/18/17 12:25) Oximetry (02/18/17 12:25) Oxygen Administration (02/18/17 12:25) Sodium Chloride 0.9% Flush (Ns Flush) (02/18/17 12:30) Aspirin Chew (Aspirin Chew) (02/18/17 13:30) Admit Order (Ed Use Only) (02/18/17 14:07) Labs Laboratory Tests Test 02/18/17 13:10 02/18/17 13:21 White Blood Count 6.3 TH/MM3 Red Blood Count 4.31 MIL/MM3 Hemoglobin 11.6 GM/DL Hematocrit 36.1 % Mean Corpuscular Volume 83.8 FL Mean Corpuscular Hemoglobin 26.9 PG Mean Corpuscular Hemoglobin Concent 32.2 % Red Cell Distribution Width 15.3 % Platelet Count 200 TH/MM3 Mean Platelet Volume 9.3 FL Neutrophils (%) (Auto) 45.1 % Lymphocytes (%) (Auto) 42.4 % Monocytes (%) (Auto) 7.2 % Eosinophils (%) (Auto) 4.3 % Basophils (%) (Auto) 1.0 % Neutrophils # (Auto) 2.9 TH/MM3 Lymphocytes # (Auto) 2.7 TH/MM3 Monocytes # (Auto) 0.5 TH/MM3 Eosinophils # (Auto) 0.3 TH/MM3 Basophils # (Auto) 0.1 TH/MM3 CBC Comment DIFF FINAL Differential Comment Prothrombin Time 10.9 SEC Prothromb Time International Ratio 1.0 RATIO Activated Partial Thromboplast Time 25.1 SEC Blood Urea Nitrogen 9 MG/DL Creatinine 1.02 MG/DL Random Glucose 76 MG/DL Calcium Level 9.0 MG/DL Magnesium Level 1.8 MG/DL Sodium Level 138 MEQ/L Potassium Level 3.9 MEQ/L Chloride Level 104 MEQ/L Carbon Dioxide Level 27.9 MEQ/L Anion Gap 6 MEQ/L Estimat Glomerular Filtration Rate 59 ML/MIN Total Creatine Kinase 26 U/L Troponin I LESS THAN 0.02 NG/ML D-Dimer Quantitative (PE/DVT) 0.39 MG/L FEU Thyroid Stimulating Hormone 3rd Gen 0.104 uIU/ML MDM Medical Decision Making Medical Screen Exam Complete: Yes Emergency Medical Condition: Yes Medical Record Reviewed: Yes Interpretation(s) Twelve-lead EKG was reviewed by me. Normal sinus rhythm, normal axis, nonspecific ST-T wave changes. Heart rate of 75 bpm. Differential Diagnosis ACS, non-STEMI, nonspecific chest pain Narrative Course 2:11 PM patient has never had a stress test. Blood test results of back and within acceptable limit. I would like her to go to the chest pain center so that she can be seen by the bonding agent ACS ruled out. I've explained this to the patient and she understands. I'll order 2 baby aspirin. Procedures EKG Prior to Arrival: No Diagnosis Primary Impression: Substernal chest pain Admitting Information Admitting Physician Requests: Observation Sherie Garrison MD Feb 18, 2017 12:53
[2017-02-18] MEDS: SODIUM CHLORIDE 0.9% FLUSH 10 ML FLUSH IVF PRN ×2 (13:12→21:21)
[2017-02-18 13:29] LABS: AUTOMATED NEUTROPHIL # 2.9 TH/MM3 (1.8-7.7); BASOPHIL # 0.1 TH/MM3 (0-0.2); EOSINOPHIL # 0.3 TH/MM3 (0-0.4); EOSINOPHIL % 4.3 % (0.0-4.0); HEMATOCRIT 36.1 % (35.0-46.0); HEMO FLAGS DIFF FINAL; LYMPH % 42.4 % (9.0-44.0); LYMPHOCYTE # 2.7 TH/MM3 (1.0-4.8); MEAN CELL VOLUME 83.8 FL (80.0-100.0); MEAN CORPUSCULAR HEMOGLOBIN 26.9 PG (27.0-34.0); MEAN CORPUSCULAR HGB CONC 32.2 % (32.0-36.0); MONO % 7.2 % (0.0-8.0); NEUT % 45.1 % (16.0-70.0); PLATELET COUNT 200 TH/MM3 (150-450); RED BLOOD COUNT 4.31 MIL/MM3 (4.00-5.30); RED CELL DISTRIBUTION WIDTH 15.3 % (11.6-17.2); WHITE BLOOD COUNT 6.3 TH/MM3 (4.0-11.0)
[2017-02-18] MEDS ORDERED: ASPIRIN 81 MG CHEW TAB CHEW ONE (13:30)
[2017-02-18 13:36] LABS: APTT (PATIENT) 25.1 SEC (24.3-30.1); PROTHROMBIN TIME - PATIENT 10.9 SEC (9.8-11.6)
--- NOTE | 2017-02-18 13:43 | RADRPT ---
EXAM DATE/TIME: 02/18/2017 13:22 [facility] COMPARISON: CHEST SINGLE AP, December 16, 2016, 7:38. INDICATIONS : Chest pain and dizziness. MEDICAL HISTORY : Bradycardia. SURGICAL HISTORY : Tubal ligation. section. Tonsillectomy ENCOUNTER: Initial ACUITY: 1 day PAIN SCORE: 8/10 LOCATION: Bilateral chest FINDINGS: A single view of the chest demonstrates the lungs to be symmetrically aerated without evidence of mas s, infiltrate or effusion. The cardiomediastinal contours are unremarkable. Osseous structures are intact. CONCLUSION: No acute disease. Tung Gurrola MD FACR on February 18, 2017 at 13:42 Board Certified Radiologist. This report was verified electronically.
[2017-02-18 13:52] LABS: ANION GAP 6 MEQ/L (5-15); BICARBONATE 27.9 MEQ/L (21.0-32.0); BLOOD UREA NITROGEN 9 MG/DL (7-18); CHLORIDE 104 MEQ/L (98-107); GLOMERULAR FILTRATION RATE 59 ML/MIN (>89); MAGNESIUM 1.8 MG/DL (1.5-2.5); POTASSIUM 3.9 MEQ/L (3.5-5.1); SODIUM (NA) 138 MEQ/L (136-145)
[2017-02-18 14:02] LABS: CREATINE KINASE 26 U/L (26-192)
[2017-02-18] MEDS ORDERED: ACETAMINOPHEN/HYDROcodone 325 MG/7.5 MG TAB PO PRN (15:15)
[2017-02-18] MEDS ORDERED: ONDANSETRON HCL 4 MG/2 ML VIAL IV PUSH PRN (15:15)
[2017-02-18] MEDS ORDERED: ALPRAZolam 0.25 MG TAB PO PRN (15:15)
[2017-02-18] MEDS ORDERED: SODIUM CHLORIDE 0.9% FLUSH 5 ML FLUSH IVF PRN (15:15)
[2017-02-18] MEDS ORDERED: SULF1TAB23 PO (16:06)
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
[2017-02-18 18:24] LABS: CREATINE KINASE 24 U/L (26-192)
[2017-02-18 20:59] LABS: CREATINE KINASE 22 U/L (26-192)
[2017-02-18] MEDS: SODIUM CHLORIDE 0.9% FLUSH 5 ML FLUSH IVF SCH (21:00)
[2017-02-18] MEDS ORDERED: clonazePAM 1 MG TAB PO SCH (21:00)
[2017-02-18] MEDS: QUEtiapine FUMARATE 300 MG TAB PO SCH (21:22)
[2017-02-18] MEDS: ACETAMINOPHEN 500 MG CPLT PO PRN (21:22)
[2017-02-18] MEDS: SULFAMETHOXAZOLE-TRIMETHOPRIM DS 800-160 MG TAB PO SCH (21:22)
[2017-02-18] MEDS: PANTOPRAZOLE SOD 40 MG DELAYED RELEASE TAB PO SCH (21:22)
[2017-02-19] VITALS: PULSE 72
[2017-02-19 03:32] VITALS: BP 90/51; PULSE 70; RESP 16; TEMP 97.9; O2SAT 93
[2017-02-19] MEDS ORDERED: LEVOTHYROXINE SODIUM 200 MCG TAB PO SCH (06:00)
--- NOTE | 2017-02-19 07:13 | EKG ---
Date Performed: 02/18/2017 Time Performed: 12:32:32 PTAGE: 41 years EKG: Sinus rhythm LOW QRS VOLTAGE IN PRECORDIAL LEADS NONSPECIFIC T-WAVE ABNORMALITY BORDERLINE ECG Since PREVIOUS TRACING , no significant change noted DOCTOR: Adenike Ventura Interpretating Date/Time 02/19/2017 07:12:14
--- NOTE | 2017-02-19 07:14 | EKG ---
Date Performed: 02/18/2017 Time Performed: 19:30:09 PTAGE: 41 years EKG: Sinus rhythm WITH OCCASIONAL VENTRICULAR PREMATURE COMPLEXES NONSPECIFIC ST & T-WAVE ABNORMALITY BORDERLINE ECG S karena PREVIOUS TRACING , no significant change noted PREVIOUS TRACIN02/18/2017 16.04 DOCTOR: Adenike Ventura Interpretating Date/Time 02/19/2017 07:13:31
--- NOTE | 2017-02-19 07:14 | EKG ---
Date Performed: 02/18/2017 Time Performed: 16:04:35 PTAGE: 41 years EKG: Sinus rhythm WITH SINUS ARRHYTHMIA NONSPECIFIC T-WAVE ABNORMALITY BORDERLINE ECG Since PREVIOUS TRACING , no significant change noted PREVIOUS TRACIN02/18/2017 12.32 DOCTOR: Adenike Ventura Interpretating Date/Time 02/19/2017 07:13:11
[2017-02-19 08:00] VITALS: PULSE 72
--- NOTE | 2017-02-19 08:10 | PD.CARD.PN ---
Subjective Subjective Remarks No complaints. Denies any chance of . Last menses 7 days ago. History of tubal ligation. Objective Medications Current Medications Medications (Trade) Dose Ordered Sig/Ailyn Route Start Time Stop Time Status Last Admin (NS Flush) 2 ml UNSCH PRN IVF 02/18/17 15:15 (NS Flush) 2 ml BID IVF 02/18/17 21:00 (Tylenol) 500 mg Q4H PRN PO 02/18/17 15:15 02/18/17 21:22 (Zofran Inj) 4 mg Q6H PRN IV PUSH 02/18/17 15:15 (Aspirin) 325 mg DAILY PO 02/19/17 09:00 (Xanax) 0.25 mg Q8H PRN PO 02/18/17 15:15 (KlonoPIN) 1 mg HS PO 02/18/17 21:00 02/18/17 21:22 (Synthroid) 200 mcg DAILY@0600 PO 02/19/17 06:00 02/19/17 07:19 (Protonix) 40 mg BID PO 02/18/17 21:00 02/18/17 21:22 (SEROquel) 300 mg BID PO 02/18/17 21:00 02/18/17 21:22 (Bactrim Ds 800-160 Mg) 1 tab BID PO 02/18/17 21:00 02/18/17 21:22 (Dolophine) 100 mg DAILY PO 02/19/17 09:00 Vital Signs / I&O Vital Signs Date Time Temp Pulse Resp B/P (MAP) Pulse Ox O2 Delivery O2 Flow Rate FiO2 02/19/17 03:32 97.9 70 16 90/51 (64) 93 02/19/17 00:00 72 02/18/17 23:36 98.2 71 18 102/55 (71) 94 02/18/17 20:25 98.1 87 18 112/63 (79) 97 02/18/17 20:00 96 02/18/17 16:09 97.6 74 26 143/67 (92) 96 02/18/17 15:46 68 16 111/61 (78) 98 02/18/17 13:55 67 15 98 Nasal Cannula 2.00 02/18/17 13:11 97.8 76 17 111/67 (82) 98 Room Air 02/18/17 13:01 79 17 98 Room Air 02/18/17 12:59 97 Room Air 02/18/17 12:59 17 97 Room Air 02/18/17 12:15 97.8 51 26 154/77 (102) 95 Physical Exam GENERAL: Alert WN, WD, NAD, pleasant HEAD: NC, AT CV: RRR, without murmur, rub, gallop, no JVD, S1-S2 no S3-S4. RESP: Clear lungs throughout bilateral NEURO: CN II through CN XII grossly intact, motor strength 5/5 PSYCH: A+O 3, pleasant affect, appropriate speech, appropriate mood and affect , insight and judgment SKIN: Normal turgor, normal texture Laboratory Laboratory Tests Test 02/18/17 13:10 02/18/17 13:21 02/18/17 17:27 02/18/17 20:06 White Blood Count 6.3 TH/MM3 Red Blood Count 4.31 MIL/MM3 Hemoglobin 11.6 GM/DL Hematocrit 36.1 % Mean Corpuscular Volume 83.8 FL Mean Corpuscular Hemoglobin 26.9 PG Mean Corpuscular Hemoglobin Concent 32.2 % Red Cell Distribution Width 15.3 % Platelet Count 200 TH/MM3 Mean Platelet Volume 9.3 FL Neutrophils (%) (Auto) 45.1 % Lymphocytes (%) (Auto) 42.4 % Monocytes (%) (Auto) 7.2 % Eosinophils (%) (Auto) 4.3 % Basophils (%) (Auto) 1.0 % Neutrophils # (Auto) 2.9 TH/MM3 Lymphocytes # (Auto) 2.7 TH/MM3 Monocytes # (Auto) 0.5 TH/MM3 Eosinophils # (Auto) 0.3 TH/MM3 Basophils # (Auto) 0.1 TH/MM3 CBC Comment DIFF FINAL Differential Comment Prothrombin Time 10.9 SEC Prothromb Time International Ratio 1.0 RATIO Activated Partial Thromboplast Time 25.1 SEC Blood Urea Nitrogen 9 MG/DL Creatinine 1.02 MG/DL Random Glucose 76 MG/DL Calcium Level 9.0 MG/DL Magnesium Level 1.8 MG/DL Sodium Level 138 MEQ/L Potassium Level 3.9 MEQ/L Chloride Level 104 MEQ/L Carbon Dioxide Level 27.9 MEQ/L Anion Gap 6 MEQ/L Estimat Glomerular Filtration Rate 59 ML/MIN Total Creatine Kinase 26 U/L 24 U/L 22 U/L Troponin I LESS THAN 0.02 NG/ML LESS THAN 0.02 NG/ML LESS THAN 0.02 NG/ML D-Dimer Quantitative (PE/DVT) 0.39 MG/L FEU Thyroid Stimulating Hormone 3rd Gen 0.104 uIU/ML Imaging Last 24 hours Impressions Chest X-Ray 02/18/17 1225 Signed Impressions: Service Date/Time: Saturday, February 18, 2017 13:22 - CONCLUSION: No acute disease. Tung Gurrola MD FACR Assessment and Plan Assessment and Plan #1 Atypical chest pain-Proceed with planned Lexiscan as previously recommended by Dr. Farhat Sykes. If unremarkable, discharge home later this afternoon with follow up with quality lab technician and PCP. #2 Hypothyroidism-TSH marginally low, not a significant change to alter Synthroid dosing, follow up with PCP and take recent lab work with her. Mirna Morrison Feb 19, 2017 08:10
[2017-02-19 08:20] VITALS: BP 101/71; PULSE 72; RESP 16; TEMP 97.9; O2SAT 95
[2017-02-19] MEDS ORDERED: ASPIRIN 325 MG TAB PO SCH (09:00)
[2017-02-19] MEDS: SODIUM CHLORIDE 0.9% FLUSH 5 ML FLUSH IVF SCH (09:00)
[2017-02-19] MEDS ORDERED: METHADONE HCL 10 MG TAB PO SCH (09:00)
[2017-02-19] MEDS: SULFAMETHOXAZOLE-TRIMETHOPRIM DS 800-160 MG TAB PO SCH (09:00)
[2017-02-19] MEDS: QUEtiapine FUMARATE 300 MG TAB PO SCH (09:00)
[2017-02-19] MEDS: PANTOPRAZOLE SOD 40 MG DELAYED RELEASE TAB PO SCH (09:10)
[2017-02-19] MEDS ORDERED: REGADENOSON INJ 0.4 MG/5 ML SYR ONE (10:18)
[2017-02-19 11:56] VITALS: BP 113/67; PULSE 61; RESP 16; TEMP 97.9; O2SAT 97
[2017-02-19] MEDS ORDERED: ACETAMINOPHEN 325 MG TAB PO PRN (12:00)
[2017-02-19] MEDS: ACETAMINOPHEN 500 MG CPLT PO PRN (12:08)
--- NOTE | 2017-02-19 12:32 | RADRPT ---
EXAM DATE/TIME: 02/19/2017 09:37 [facility] COMPARISON: No previous studies available for comparison. INDICATIONS : Mid chest pain for one day. Angina. DOSE: 26.2 mCi Tc99m Myoview at stress. 8.6 mCi Tc99m Myoview at rest. 0.4 mg Lexiscan STRESS SYMPTOMS: Short of breath and anxiety. EJECTION FRACTION: 54% MEDICAL HISTORY : Hypothyroidism. Hyperlipedemia SURGICAL HISTORY : Tonsillectomy. Tubal ligation. section. ENCOUNTER: Initial ACUITY: 1 day PAIN SCALE: 2/10 LOCATION: chest discomfort TECHNIQUE: The patient underwent pharmacologic stress with infusion of prescribed dose. Continuous ECG tracing was monitored during stress. Gated SPECT imaging was performed after stress and conventional SPECT i maging was performed at rest. The examination was performed on a SPECT/CT scanner, both attenuation and non-corrected datasets were reviewed. FINDINGS: DISTRIBUTION: The maximum perfused segment at stress is in the septal wall. PERFUSION STUDY: The pattern of perfusion at stress is within normal limits. GATED STUDY: There is intact wall motion and thickening without hypokinetic or dyskinetic segments. CONCLUSION: No reversible defects observed to suggest acute ischemia. RISK CATEGORY: Low Jose A Montana Jr., MD on February 19, 2017 at 12:29 Board Certified Radiologist. This report was verified electronically.
--- NOTE | 2017-02-19 12:41 | HHI.DCPOC ---
Discharge Care Plan Diagnosis: (1) Atypical chest pain Goals to Promote Your Health * To prevent worsening of your condition and complications * To maintain your health at the optimal level Directions to Meet Your Goals Take your medications as prescribed Follow your dietary instruction Follow activity as directed Keep your appointments as scheduled Take your immunizations and boosters as scheduled If your symptoms worsen call your PCP, if no PCP go to Urgent Care Center or Emergency Room Smoking is Dangerous to Your Health. Avoid second hand smoke Call the 24-hour hour crisis hotline for domestic abuse at Mirna Morrison Feb 19, 2017 12:41
--- NOTE | 2017-02-19 13:12 | HHI.DS ---
Discharge Summary Admission Date Feb 18, 2017 at 14:08 Discharge Date: Feb 19, 2017 Admitting Diagnosis chest pain, rule out ACS Procedures Last Impressions Myocardial Perfusion Scan Nuc Med 02/19/17 0000 Signed Impressions: Service Date/Time: February 09:37 - CONCLUSION: No reversible defects observed to suggest acute ischemia. RISK CATEGORY: Richard Montana Jr., MD Chest X-Ray 02/18/175 Signed Impressions: Service Date/Time: Saturday, February 18, 2017 13:22 - CONCLUSION: No acute disease. Tung Gurrola MD FACR Brief History 41-year-old female presents to emergency room for further evaluation of substernal chest pressure and bradycardia. History of bradycardia originally thought to be related to hypothyroidism. Her thyroid levels had improved therefore see never followed up with history faculty member for Holter monitor. CBC/BMP: 02/18/17 1310 02/18/17 1310 Significant Findings Laboratory Tests Test 02/18/17 13:10 02/18/17 13:21 02/18/17 17:27 02/18/17 20:06 Mean Corpuscular Hemoglobin 26.9 PG (27.0-34.0) Eosinophils (%) (Auto) 4.3 % (0.0-4.0) Creatinine 1.02 MG/DL (0.50-1.00) Estimat Glomerular Filtration Rate 59 ML/MIN (>89) Troponin I LESS THAN 0.02 NG/ML LESS THAN 0.02 NG/ML LESS THAN 0.02 NG/ML Thyroid Stimulating Hormone 3rd Gen 0.104 uIU/ML (0.358-3.740) Total Creatine Kinase 24 U/L (26-192) 22 U/L (26-192) Imaging Last Impressions Myocardial Perfusion Scan Nuc Med 02/19/17 0000 Signed Impressions: Service Date/Time: February 09:37 - CONCLUSION: No reversible defects observed to suggest acute ischemia. RISK CATEGORY: Richard Montana Jr., MD Chest X-Ray 02/18/17 1225 Signed Impressions: Service Date/Time: Saturday, February 18, 2017 13:22 - CONCLUSION: No acute disease. Tung Gurrola MD FACR PE at Discharge GENERAL: Alert WN, WD, NAD, pleasant HEAD: NC, AT CV: RRR, without murmur, rub, gallop, no JVD, S1-S2 no S3-S4. RESP: Clear lungs throughout bilateral, no crackles, wheeze, rhonchi, symmetrical chest rise, nonlabored, able to speak in full sentences ABD: Soft, NT, ND, no masses, positive bowel tones PSYCH: A+O 3, pleasant affect, appropriate speech, appropriate mood and affect , insight and judgment SKIN: Normal turgor, normal texture Pt Condition on Discharge: Good Discharge Disposition: Discharge Home Discharge Instructions DIET: Follow Instructions for: Heart Healthy Diet Activities you can perform: Regular-No Restrictions Additional Information Follow up with history faculty member and discuss Holter monitor placement. Mirna Morrison Feb 19, 2017 13:12
--- NOTE | 2017-02-19 18:27 | TR ---
Date Performed: 02/19/2017 Time Performed: 10:16:51 DOCTOR: Adenike Ventura DRUG LIST: CLINICAL HISTORY: REASON FOR TEST: Angina REASON FOR ENDING: OBSERVATION: CONCLUSION: Lexiscan stress test was performed under standard four minute protocol. Radionuclid e was injected one minute prior to ending the test. No electrocardiographic abormalities were present to suggest ischemia. Nuclear imaging and interpretation are pending. COMMENTS:
== END 2017-02-19 15:05 | disposition home or self-care (01) ==
LOC: NEPE 12:13 → NEDA 14:08 → NEPFCDU 15:59
PROVIDERS: ADMIT Internal Medicine Cardiovascular Disease; ATTEND Internal Medicine Cardiovascular Disease
DX: R07.89 Other chest pain (principal); R94.31 Abnormal electrocardiogram [ECG] [EKG]; E78.5 Hyperlipidemia, unspecified; E03.9 Hypothyroidism, unspecified; K21.9 Gastro-esophageal reflux disease without esophagitis; K22.70 Barrett's esophagus without dysplasia; F31.9 Bipolar disorder, unspecified; Z86.73 Personal history of transient ischemic attack (TIA), and cerebral infarction without residual deficits; Z98.51 Tubal ligation status
CPT/HCPCS: 71010; 78452; 80048; 82550; 83735; 84443; 84484; 84703; 85025; 85379; 85610; 85730; 93005; 93017; 99285; A9502; G0378; J2785

== ENCOUNTER 2017-07-14 08:32 | Emergency (ER) | payer MEDICAID ==
[~2017-07-14] VITALS: Ht 165.1 cm; Wt 72.0 kg
[~2017-07-14 08:32] MED LIST changes: -FERR200T PO
[2017-07-14 08:33] VITALS: BP 135/85; PULSE 63; RESP 19; TEMP 97.9; O2SAT 100
[2017-07-14] MEDS ORDERED: SODIUM CHLOR 0.9% 1000 ML INJ 1,000 ML IV ONE (09:48)
[2017-07-14] MEDS ORDERED: ONDANSETRON HCL 4 MG/2 ML VIAL IVP ONE (10:00)
[2017-07-14] MEDS ORDERED: SODIUM CHLORIDE 0.9% FLUSH 10 ML FLUSH IVF PRN (10:00)
[2017-07-14 10:35] LABS: BACTERIA, URINE MOD /hpf; BILIRUBIN, URINE NEG (NEG); BLOOD, URINE NEG (NEG); GLUCOSE,URINE NEG (NEG); KETONE, URINE 40 mg/dL (NEG); MUCUS URINE MANY /lpf (OCC); NITRITE,URINE NEG (NEG); PH, URINE 6.5 (5.0-8.5); SQUAMOUS EPITHELIAL CELL URINE 63 /hpf (0-5); TRANSITIONAL EPI CELLS, URINE <1 /hpf; URINE COLOR YELLOW (YELLW/STRAW); URINE LEUKOCYTE ESTERASE SMALL (NEG)
--- NOTE | 2017-07-14 10:37 | PD ---
HPI Chief Complaint: GI Complaint Time Seen by Provider: 09:37 Travel History International Travel<30 days: No Contact w/Intl Traveler<30days: No Traveled to known affect area: No History of Present Illness HPI 42-year-old female presents to the emergency Department with complaint of nausea and vomiting 4 days. Says she felt weak, lightheaded and dizzy at home and says she was passed out and so she wanted to come in to be evaluated. Reports feeling weak. Denies fever, abdominal pain, diarrhea, dysuria. Denies chest pain, shortness of breath. Denies hematemesis. Says she "just does not feel right." Reports sweating this morning. No one else with similar symptoms. Last menstrual period was one month ago. Has history of tubal ligation. Denies risk of . Takes methadone daily and has taken it this morning. Says she last vomited this morning prior to taking her methadone. Reports decreased appetite. Took in some fluids yesterday. Has not taken any medications or treatments to alleviate her symptoms. Denies pain. Symptoms are moderate in severity. Primary care provider is Idalmis lopez. No known allergies. Denies significant past medical history. Has no other medical complaints. No other modifying factors or associated signs and symptoms. PFSH Past Medical History Anemia: Yes Arthritis: No Asthma: No Autoimmune Disease: No Blood Disorders: No Anxiety: Yes Depression: Yes Heart Rhythm Problems: No Cancer: No Cardiac Catheterization: No Cardiovascular Problems: Yes High Cholesterol: No Chest Pain: No Congestive Heart Failure: No COPD: No Cerebrovascular Accident: Yes Diabetes: No Diminished Hearing: No Endocrine: Yes Gastrointestinal Disorders: Yes (GASTROPARESIS/ BARRETTS ESOPHAGUS) GERD: Yes Glaucoma: No Genitourinary: Yes (CHRONIC PID PER PT) Hepatitis: No Hiatal Hernia: No Hypertension: No Immune Disorder: No Implanted Vascular Access Dvce: Yes Kidney Stones: No Musculoskeletal: No Neurologic: Yes Psychiatric: Yes Reproductive: No Respiratory: No Myocardial Infarction: No Renal Failure: No Sleep Apnea: No Thyroid Disease: Yes (hypothyroidism) Ulcer: No Tetanus Vaccination: > 5 Years ?: Not LMP: 06/2017 : 2 Para: 2 Miscarriage: 2 : 0 Tubal Ligation: Yes Past Surgical History Abdominal Surgery: No Appendectomy: No Cardiac Surgery: No Section: Yes (X2) Cholecystectomy: No Coronary Artery Bypass Graft: No Ear Surgery: No Endocrine Surgery: No Eye Surgery: No Genitourinary Surgery: No Gynecologic Surgery: Yes (TUBAL LIGATION & C- SECTION X 2) Oral Surgery: Yes (FULL MOUTH EXTRACTION / tonsils removed) Thoracic Surgery: No Tonsillectomy: Yes Other Surgery: Yes Social History Alcohol Use: No Tobacco Use: No Substance Use: No Allergies-Medications (Allergen,Severity, Reaction): Coded Allergies: No Known Allergies (Verified Adverse Reaction, Unknown, 07/14/17) Reported Meds & Prescriptions Reported Meds & Active Scripts Active Zofran Odt (Ondansetron Odt) 4 Mg Tab 4 Mg SL Q8HR PRN Keflex (Cephalexin) 500 Mg Cap 500 Mg PO Q12H 7 Days Synthroid (Levothyroxine Sodium) 200 Mcg Tab 200 Mcg PO DAILY Protonix (Pantoprazole Sodium) 40 Mg Tab 40 Mg PO BID Reported Methadone (Methadone HCl) 10 Mg Tab 100 Mg PO DAILY Klonopin (Clonazepam) 1 Mg Tab 1 Mg PO HS Seroquel (Quetiapine Fumarate) 300 Mg Tab 300 Mg PO BID Review of Systems Except as stated in HPI: all other systems reviewed are Neg Physical Exam Narrative GENERAL: Well-nourished, well-developed female patient, in no acute distress SKIN: Warm and dry. No rash. HEAD: Atraumatic. Normocephalic. EYES: Pupils equal and round. No scleral icterus. No injection or drainage. ENT: Mucosa pink and moist. NECK: Trachea midline. CARDIOVASCULAR: Regular rate and rhythm. No murmur appreciated. RESPIRATORY: No accessory muscle use. Clear to auscultation. Breath sounds equal bilaterally. GASTROINTESTINAL: Abdomen soft, non-tender, nondistended. Hepatic and splenic margins not palpable. Bowel sounds are active 4 quadrants. Bladder nontender and nondistended. MUSCULOSKELETAL: No obvious deformities. No clubbing. No cyanosis. No edema. BACK: No CVA tenderness NEUROLOGICAL: Awake and alert. Oriented 3. No obvious cranial nerve deficits. Motor grossly within normal limits. Normal speech. Moves all extremities. 5/5 strength to all extremities. PSYCHIATRIC: Appropriate mood and affect; insight and judgment normal. Data Data Last Documented VS Vital Signs Date Time Temp Pulse Resp B/P (MAP) Pulse Ox O2 Delivery O2 Flow Rate FiO2 07/14/17 09:35 20 07/14/17 08:33 97.9 63 135/85 (102) 100 Orders Orders Electrocardiogram (07/14/17 09:48) Basic Metabolic Panel (Bmp) (07/14/17 09:48) Ed Urine Pregnancytest Poc (07/14/17 09:48) Comprehensive Metabolic Panel (07/14/17 09:48) Urinalysis - C+S If Indicated (07/14/17 09:48) Iv Access Insert/Monitor (07/14/17 09:48) Ondansetron Inj (Zofran Inj) (07/14/17 10:00) Sodium Chloride 0.9% Flush (Ns Flush) (07/14/17 10:00) Sodium Chlor 0.9% 1000 Ml Inj (Ns 1000 M (07/14/17 09:48) Lipase (07/14/17 09:48) Urine Culture (07/14/17 10:15) Complete Blood Count With Diff (07/14/17 10:37) Ondansetron Inj (Zofran Inj) (07/14/17 12:00) Ceftriaxone Inj (Rocephin Inj) (07/14/17 12:00) Labs Laboratory Tests Test 07/14/17 09:55 07/14/17 10:15 07/14/17 10:40 Blood Urea Nitrogen 12 MG/DL Creatinine 0.93 MG/DL Random Glucose 86 MG/DL Total Protein 7.6 GM/DL Albumin 3.9 GM/DL Calcium Level 8.9 MG/DL Alkaline Phosphatase 51 U/L Aspartate Amino Transf (AST/SGOT) 18 U/L Alanine Aminotransferase (ALT/SGPT) 23 U/L Total Bilirubin 0.4 MG/DL Sodium Level 140 MEQ/L Potassium Level 4.1 MEQ/L Chloride Level 107 MEQ/L Carbon Dioxide Level 26.1 MEQ/L Anion Gap 7 MEQ/L Estimat Glomerular Filtration Rate 65 ML/MIN Lipase 127 U/L Urine Color YELLOW Urine Turbidity CLOUDY Urine pH 6.5 Urine Specific [place] 1.021 Urine Protein 30 mg/dL Urine Glucose (UA) NEG mg/dL Urine Ketones 40 mg/dL Urine Occult Blood NEG Urine Nitrite NEG Urine Bilirubin NEG Urine Urobilinogen LESS THAN 2.0 MG/DL Urine Leukocyte Esterase SMALL Urine RBC 1 /hpf Urine WBC 3 /hpf Urine Squamous Epithelial Cells 63 /hpf Urine Transitional Epithelial Cells <1 /hpf Urine Bacteria MOD /hpf Urine Mucus MANY /lpf Microscopic Urinalysis Comment CULTURE INDICATED White Blood Count 7.9 TH/MM3 Red Blood Count 4.42 MIL/MM3 Hemoglobin 11.4 GM/DL Hematocrit 35.1 % Mean Corpuscular Volume 79.3 FL Mean Corpuscular Hemoglobin 25.8 PG Mean Corpuscular Hemoglobin Concent 32.5 % Red Cell Distribution Width 16.6 % Platelet Count 270 TH/MM3 Mean Platelet Volume 9.5 FL Neutrophils (%) (Auto) 77.3 % Lymphocytes (%) (Auto) 15.6 % Monocytes (%) (Auto) 5.0 % Eosinophils (%) (Auto) 0.8 % Basophils (%) (Auto) 1.3 % Neutrophils # (Auto) 6.1 TH/MM3 Lymphocytes # (Auto) 1.2 TH/MM3 Monocytes # (Auto) 0.4 TH/MM3 Eosinophils # (Auto) 0.1 TH/MM3 Basophils # (Auto) 0.1 TH/MM3 CBC Comment DIFF FINAL Differential Comment MDM Medical Decision Making Medical Screen Exam Complete: Yes Emergency Medical Condition: Yes Medical Record Reviewed: Yes Differential Diagnosis Vomiting, viral illness, gastroenteritis, gastritis, near syncope, fatigue, dehydration Narrative Course 42-year-old female with nausea and vomiting 4 days. Physical exam is unremarkable. Patient is afebrile nontoxic-appearing. She denies fevers. Denies abdominal pain. CBC, CMP, lipase, IV, normal saline bolus, Zofran, urinalysis, UPT ordered. 1039: EKG with NSR; no ST elevation or depression; reviewed by Dr. Garrison. Urinalysis of signs of infection and reflexed to culture. Rocephin 1 g IV administered in the ER. Keflex will be prescribed for home. 1144: CBC, CMP, lipase unremarkable. Patient will be given fluids and an oral challenge. 1258: Patient states she is feeling better. She has tolerated Gatorade without continued nausea or vomiting. Keflex and Zofran prescribed for home. Discussed precautions to return to the emergency department. Instructed patient to follow up with primary care provider. Patient verbalizes understanding and agreement with treatment plan. Patient is medically cleared and stable for discharge. Discussed reasons to return to the emergency department. Patient agrees with treatment plan. The patients vital signs are stable and the patient is stable for outpatient follow-up and treatment. Patient discharged home, stable and in no acute distress. Diagnosis Primary Impression: Vomiting Qualified Codes: R11.10 - Vomiting, unspecified Additional Impression: UTI (urinary tract infection) Qualified Codes: N39.0 - Urinary tract infection, site not specified Referrals: [facility] Primary Care Physician Patient Instructions: Acute Nausea and Vomiting (ED), General Instructions, Urinary Tract Infection in Women (ED) Additional Instructions: Take Zofran as prescribed for nausea/vomiting Increase fluid intake, starting with clear fluids; advancing to a bland diet as tolerated [place] diet to include crackers, rice, toast, bananas as tolerated, advancing slowly to regular diet Follow-up primary care provider in next 1-2 days Return to emergency department immediately with worsening of symptoms Take antibiotics as prescribed and complete full course Drink plenty of fluids Maintain good personal hygiene Follow-up with primary care provider Return to the emergency department immediately with worsening of symptoms Med/Other Pt SpecificInfo: Prescription(s) given Scripts Ondansetron Odt (Zofran Odt) 4 Mg Tab 4 MG SL Q8HR Y for Nausea/Vomiting, #6 TAB 0 Refills Prov: Anabella Cruz 07/14/17 Cephalexin (Keflex) 500 Mg Cap 500 MG PO Q12H for Infection for 7 Days, #14 CAP 0 Refills Prov: Anabella Cruz 07/14/17 Disposition: 01 DISCHARGE HOME Condition: Stable Anabella Cruz Jul 14, 2017 10:37
[2017-07-14 10:41] LABS: ALBUMIN 3.9 GM/DL (3.4-5.0); ALT (GPT) 23 U/L (10-53); AST (GOT) 18 U/L (15-37); BICARBONATE 26.1 MEQ/L (21.0-32.0); BLOOD UREA NITROGEN 12 MG/DL (7-18); CALCIUM 8.9 MG/DL (8.5-10.1); CHLORIDE 107 MEQ/L (98-107); CREATININE 0.93 MG/DL (0.50-1.00); GLOMERULAR FILTRATION RATE 65 ML/MIN (>89); GLUCOSE,RANDOM 86 MG/DL (74-106); SODIUM (NA) 140 MEQ/L (136-145)
[2017-07-14] MEDS ORDERED: ZOFR4TAB3 SL (10:41)
[2017-07-14] MEDS ORDERED: CEPH-460 PO (10:41)
[2017-07-14 10:44] LABS: ALKALINE PHOSPHATASE 51 U/L (45-117); TOTAL BILIRUBIN ADULT 0.4 MG/DL (0.2-1.0); TOTAL PROTEIN 7.6 GM/DL (6.4-8.2)
[2017-07-14 10:58] LABS: AUTOMATED NEUTROPHIL # 6.1 TH/MM3 (1.8-7.7); BASOPHIL # 0.1 TH/MM3 (0-0.2); BASOPHIL % 1.3 % (0.0-2.0); EOSINOPHIL # 0.1 TH/MM3 (0-0.4); EOSINOPHIL % 0.8 % (0.0-4.0); HEMATOCRIT 35.1 % (35.0-46.0); HEMOGLOBIN 11.4 GM/DL (11.6-15.3); LYMPH % 15.6 % (9.0-44.0); LYMPHOCYTE # 1.2 TH/MM3 (1.0-4.8); MEAN CELL VOLUME 79.3 FL (80.0-100.0); MEAN CORPUSCULAR HEMOGLOBIN 25.8 PG (27.0-34.0); MEAN CORPUSCULAR HGB CONC 32.5 % (32.0-36.0); MEAN PLATELET VOLUME 9.5 FL (7.0-11.0); MONOCYTE # 0.4 TH/MM3 (0-0.9); NEUT % 77.3 % (16.0-70.0); PLATELET COUNT 270 TH/MM3 (150-450); RED BLOOD COUNT 4.42 MIL/MM3 (4.00-5.30); RED CELL DISTRIBUTION WIDTH 16.6 % (11.6-17.2); WHITE BLOOD COUNT 7.9 TH/MM3 (4.0-11.0)
[2017-07-14] MEDS ORDERED: ONDANSETRON HCL 4 MG/2 ML VIAL IV PUSH ONE (12:00)
[2017-07-14] MEDS ORDERED: cefTRIAXone INJ 1,000 MG in SODIUM CHLORIDE 0.9% INJ 100 ML IV ONE (12:00)
--- NOTE | 2017-07-15 07:04 | EKG ---
Date Performed: 07/14/2017 Time Performed: 10:14:54 PTAGE: 42 years EKG: Sinus rhythm NONSPECIFIC T-WAVE ABNORMALITY BORDERLINE ECG Compared to PREVIOUS TRACING , ST-T abnormalities are less prominent. PREVIOUS TRACIN02/18/2017 19 .30 DOCTOR: Matias Key Interpretating Date/Time 07/15/2017 07:03:17
== END 2017-07-14 13:22 | disposition home or self-care (01) ==
LOC: NEPD 08:32
DX: R11.2 Nausea with vomiting, unspecified (principal); N39.0 Urinary tract infection, site not specified; E03.9 Hypothyroidism, unspecified
CPT/HCPCS: 80053; 81001; 83690; 84703; 85025; 87086; 93005; 96361; 96365; 96375; 99284; J0696; J2405; J7030

== ENCOUNTER 2017-07-17 10:21 | Emergency (ER) | payer MEDICAID ==
[~2017-07-17] VITALS: Ht 165.1 cm; Wt 73.0 kg
[~2017-07-17 10:21] MED LIST changes: +CEPH-460 PO; -SULF1TAB23 PO; +ZOFR4TAB3 SL
[2017-07-17 10:31] VITALS: BP 112/67; PULSE 67; RESP 18; TEMP 98.2; O2SAT 98
[2017-07-17 10:38] VITALS: RESP 18; O2SAT 97
[2017-07-17 11:06] LABS: AUTOMATED NEUTROPHIL # 4.7 TH/MM3 (1.8-7.7); BASOPHIL % 0.4 % (0.0-2.0); EOSINOPHIL % 0.3 % (0.0-4.0); HEMATOCRIT 36.4 % (35.0-46.0); LYMPH % 21.1 % (9.0-44.0); LYMPHOCYTE # 1.4 TH/MM3 (1.0-4.8); MEAN CELL VOLUME 80.1 FL (80.0-100.0); MEAN CORPUSCULAR HEMOGLOBIN 26.3 PG (27.0-34.0); MEAN CORPUSCULAR HGB CONC 32.8 % (32.0-36.0); MEAN PLATELET VOLUME 9.3 FL (7.0-11.0); MONO % 7.1 % (0.0-8.0); MONOCYTE # 0.5 TH/MM3 (0-0.9); NEUT % 71.1 % (16.0-70.0); PLATELET COUNT 229 TH/MM3 (150-450); RED BLOOD COUNT 4.54 MIL/MM3 (4.00-5.30); RED CELL DISTRIBUTION WIDTH 16.2 % (11.6-17.2); WHITE BLOOD COUNT 6.6 TH/MM3 (4.0-11.0)
[2017-07-17 11:23] LABS: ALBUMIN 3.8 GM/DL (3.4-5.0); ALKALINE PHOSPHATASE 48 U/L (45-117); ALT (GPT) 22 U/L (10-53); BICARBONATE 22.2 MEQ/L (21.0-32.0); BLOOD UREA NITROGEN 9 MG/DL (7-18); CALCIUM 8.6 MG/DL (8.5-10.1); CHLORIDE 106 MEQ/L (98-107); CREATININE 0.94 MG/DL (0.50-1.00); GLOMERULAR FILTRATION RATE 65 ML/MIN (>89); GLUCOSE,RANDOM 121 MG/DL (74-106); SODIUM (NA) 136 MEQ/L (136-145); TOTAL BILIRUBIN ADULT 0.3 MG/DL (0.2-1.0); TOTAL PROTEIN 7.6 GM/DL (6.4-8.2)
[2017-07-17 11:32] LABS: AST (GOT) 54 U/L (15-37)
[2017-07-17] MEDS ORDERED: LORazepam 2 MG/ML VIAL IV PUSH ONE (12:15)
[2017-07-17] MEDS ORDERED: SODIUM CHLOR 0.9% 250 ML INJ 250 ML IV ONE (12:15)
--- NOTE | 2017-07-17 12:33 | PD ---
HPI Chief Complaint: Abdominal Pain Time Seen by Provider: 11:32 Travel History International Travel<30 days: No Contact w/Intl Traveler<30days: No Traveled to known affect area: No History of Present Illness HPI Patient is a 42-year-old female presenting to the emergency department for evaluation of nausea, vomiting, abdominal pain. Patient states it started 1 week ago. Patient denies any fevers, chest pain, shortness of breath. She states she has been unable to eat or drink for the last several days. She reports being diagnosed with a urinary tract infection 3 days ago. She states she has been unable to take her antibiotics because of the nausea and vomiting. She reports suprapubic pain, pain is also reported as diffuse. Onset of symptoms was gradual, symptoms severity is moderate. There are no alleviating factors. Symptoms are exacerbated with food, movement. Patient has a history of Martinez's esophagus, hypothyroidism, anxiety. Patient reports her pain is a 6 out of 10. She states is aching and cramping. PFSH Past Medical History Anemia: Yes Arthritis: No Asthma: No Autoimmune Disease: No Blood Disorders: No Anxiety: Yes Depression: Yes Heart Rhythm Problems: No Cancer: No Cardiac Catheterization: No Cardiovascular Problems: Yes High Cholesterol: No Chest Pain: No Congestive Heart Failure: No COPD: No Cerebrovascular Accident: Yes Diabetes: No Diminished Hearing: No Endocrine: Yes Gastrointestinal Disorders: Yes (GASTROPARESIS/ BARRETTS ESOPHAGUS) GERD: Yes Glaucoma: No Genitourinary: Yes (CHRONIC PID PER PT) Hepatitis: No Hiatal Hernia: No Hypertension: No Immune Disorder: No Implanted Vascular Access Dvce: Yes Kidney Stones: No Musculoskeletal: No Neurologic: Yes Psychiatric: Yes Reproductive: No Respiratory: No Myocardial Infarction: No Renal Failure: No Sleep Apnea: No Thyroid Disease: Yes (hypothyroidism) Ulcer: No Influenza Vaccination: Yes ?: Unknown : 2 Para: 2 Miscarriage: 2 : 0 Tubal Ligation: Yes Past Surgical History Abdominal Surgery: No Appendectomy: No Cardiac Surgery: No Section: Yes (X2) Cholecystectomy: No Coronary Artery Bypass Graft: No Ear Surgery: No Endocrine Surgery: No Eye Surgery: No Genitourinary Surgery: No Gynecologic Surgery: Yes (TUBAL LIGATION & C- SECTION X 2) Oral Surgery: Yes (FULL MOUTH EXTRACTION / tonsils removed) Thoracic Surgery: No Tonsillectomy: Yes Other Surgery: Yes Social History Alcohol Use: No Tobacco Use: No Substance Use: No Allergies-Medications (Allergen,Severity, Reaction): Coded Allergies: No Known Allergies (Verified Adverse Reaction, Unknown, 07/17/17) Reported Meds & Prescriptions Reported Meds & Active Scripts Active Zofran Odt (Ondansetron Odt) 4 Mg Tab 4 Mg SL Q8HR PRN Keflex (Cephalexin) 500 Mg Cap 500 Mg PO Q12H 7 Days Synthroid (Levothyroxine Sodium) 200 Mcg Tab 200 Mcg PO DAILY Protonix (Pantoprazole Sodium) 40 Mg Tab 40 Mg PO BID Reported Methadone (Methadone HCl) 10 Mg Tab 100 Mg PO DAILY Klonopin (Clonazepam) 1 Mg Tab 1 Mg PO HS Seroquel (Quetiapine Fumarate) 300 Mg Tab 300 Mg PO BID Review of Systems Except as stated in HPI: all other systems reviewed are Neg General / Constitutional: No: Fever HENT: No: Headaches Cardiovascular: No: Chest Pain or Discomfort Respiratory: No: Cough, Shortness of Breath Gastrointestinal: Positive: Nausea, Vomiting, Abdominal Pain, Loss of Appetite Genitourinary: No: Dysuria Musculoskeletal: No: Myalgias Neurologic: No: Weakness Physical Exam Narrative GENERAL: Well-developed, well-nourished, anxious appearing female. Presenting in no acute distress. SKIN: Warm and dry. HEAD: Atraumatic. Normocephalic. EYES: Pupils equal and round. No scleral icterus. No injection or drainage. ENT: No nasal bleeding or discharge. Mucous membranes pink and moist. NECK: Trachea midline. No JVD. CARDIOVASCULAR: Regular rate and rhythm. RESPIRATORY: No accessory muscle use. Clear to auscultation. Breath sounds equal bilaterally. GASTROINTESTINAL: Abdomen soft, tender to palpation left upper quadrant and suprapubic region, nondistended. Hepatic and splenic margins not palpable. No rebound, no guarding. Positive bowel sounds. MUSCULOSKELETAL: Extremities without clubbing, cyanosis, or edema. No obvious deformities. NEUROLOGICAL: Awake and alert. No obvious cranial nerve deficits. Motor grossly within normal limits. Five out of 5 muscle strength in the arms and legs. Normal speech. PSYCHIATRIC: Anxious mood and affect; insight and judgment normal. Data Data Last Documented VS Vital Signs Date Time Temp Pulse Resp B/P (MAP) Pulse Ox O2 Delivery O2 Flow Rate FiO2 07/17/17 10:38 97 Room Air 07/17/17 10:38 18 07/17/17 10:31 98.2 67 112/67 (82) Orders Orders Complete Blood Count With Diff (07/17/17 10:37) Comprehensive Metabolic Panel (07/17/17 10:37) Urinalysis - C+S If Indicated (07/17/17 10:37) Ed Urine Pregnancytest Poc (07/17/17 10:37) Iv Access Insert/Monitor (07/17/17 10:37) Oxygen Administration (07/17/17 10:37) Oximetry (07/17/17 10:37) Lipase (07/17/17 10:37) Ct Abd/Pel W Iv Contrast(Rout) (07/17/17 ) Sodium Chlor 0.9% 250 Ml Inj (Ns 250 Ml (07/17/17 12:15) Lorazepam Inj (Ativan Inj) (07/17/17 12:15) Hepatic Functional Panel (07/17/17 12:04) Iohexol 350 Inj (Omnipaque 350 Inj) (07/17/17 12:36) Ondansetron Inj (Zofran Inj) (07/17/17 13:15) Urine Culture (07/17/17 13:45) Nitrofurantoin Monohyd Macrocr (Macrobid (07/17/17 14:45) Labs Laboratory Tests Test 07/17/17 10:40 07/17/17 13:45 White Blood Count 6.6 TH/MM3 Red Blood Count 4.54 MIL/MM3 Hemoglobin 12.0 GM/DL Hematocrit 36.4 % Mean Corpuscular Volume 80.1 FL Mean Corpuscular Hemoglobin 26.3 PG Mean Corpuscular Hemoglobin Concent 32.8 % Red Cell Distribution Width 16.2 % Platelet Count 229 TH/MM3 Mean Platelet Volume 9.3 FL Neutrophils (%) (Auto) 71.1 % Lymphocytes (%) (Auto) 21.1 % Monocytes (%) (Auto) 7.1 % Eosinophils (%) (Auto) 0.3 % Basophils (%) (Auto) 0.4 % Neutrophils # (Auto) 4.7 TH/MM3 Lymphocytes # (Auto) 1.4 TH/MM3 Monocytes # (Auto) 0.5 TH/MM3 Eosinophils # (Auto) 0.0 TH/MM3 Basophils # (Auto) 0.0 TH/MM3 CBC Comment DIFF FINAL Differential Comment Blood Urea Nitrogen 9 MG/DL Creatinine 0.94 MG/DL Random Glucose 121 MG/DL Total Protein 7.6 GM/DL Albumin 3.8 GM/DL Calcium Level 8.6 MG/DL Alkaline Phosphatase 48 U/L Aspartate Amino Transf (AST/SGOT) 54 U/L Alanine Aminotransferase (ALT/SGPT) 22 U/L Total Bilirubin 0.3 MG/DL Sodium Level 136 MEQ/L Potassium Level 5.6 MEQ/L Chloride Level 106 MEQ/L Carbon Dioxide Level 22.2 MEQ/L Anion Gap 8 MEQ/L Estimat Glomerular Filtration Rate 65 ML/MIN Lipase 112 U/L Urine Color DARK-YELLOW Urine Turbidity HAZY Urine pH 8.0 Urine Specific [place] GREATER THAN 1.050 Urine Protein 30 mg/dL Urine Glucose (UA) NEG mg/dL Urine Ketones 40 mg/dL Urine Occult Blood NEG Urine Nitrite NEG Urine Bilirubin NEG Urine Urobilinogen LESS THAN 2.0 MG/DL Urine Leukocyte Esterase NEG Urine RBC 5 /hpf Urine WBC 8 /hpf Urine Squamous Epithelial Cells 66 /hpf Urine Bacteria MANY /hpf Microscopic Urinalysis Comment CULTURE INDICATED [facility] Medical Decision Making Medical Screen Exam Complete: Yes Emergency Medical Condition: Yes Interpretation(s) Laboratory Tests Test 07/17/17 10:40 07/17/17 13:45 White Blood Count 6.6 TH/MM3 Red Blood Count 4.54 MIL/MM3 Hemoglobin 12.0 GM/DL Hematocrit 36.4 % Mean Corpuscular Volume 80.1 FL Mean Corpuscular Hemoglobin 26.3 PG Mean Corpuscular Hemoglobin Concent 32.8 % Red Cell Distribution Width 16.2 % Platelet Count 229 TH/MM3 Mean Platelet Volume 9.3 FL Neutrophils (%) (Auto) 71.1 % Lymphocytes (%) (Auto) 21.1 % Monocytes (%) (Auto) 7.1 % Eosinophils (%) (Auto) 0.3 % Basophils (%) (Auto) 0.4 % Neutrophils # (Auto) 4.7 TH/MM3 Lymphocytes # (Auto) 1.4 TH/MM3 Monocytes # (Auto) 0.5 TH/MM3 Eosinophils # (Auto) 0.0 TH/MM3 Basophils # (Auto) 0.0 TH/MM3 CBC Comment DIFF FINAL Differential Comment Blood Urea Nitrogen 9 MG/DL Creatinine 0.94 MG/DL Random Glucose 121 MG/DL Total Protein 7.6 GM/DL Albumin 3.8 GM/DL Calcium Level 8.6 MG/DL Alkaline Phosphatase 48 U/L Aspartate Amino Transf (AST/SGOT) 54 U/L Alanine Aminotransferase (ALT/SGPT) 22 U/L Total Bilirubin 0.3 MG/DL Sodium Level 136 MEQ/L Potassium Level 5.6 MEQ/L Chloride Level 106 MEQ/L Carbon Dioxide Level 22.2 MEQ/L Anion Gap 8 MEQ/L Estimat Glomerular Filtration Rate 65 ML/MIN Lipase 112 U/L Urine Color DARK-YELLOW Urine Turbidity HAZY Urine pH 8.0 Urine Specific [place] GREATER THAN 1.050 Urine Protein 30 mg/dL Urine Glucose (UA) NEG mg/dL Urine Ketones 40 mg/dL Urine Occult Blood NEG Urine Nitrite NEG Urine Bilirubin NEG Urine Urobilinogen LESS THAN 2.0 MG/DL Urine Leukocyte Esterase NEG Urine RBC 5 /hpf Urine WBC 8 /hpf Urine Squamous Epithelial Cells 66 /hpf Urine Bacteria MANY /hpf Microscopic Urinalysis Comment CULTURE INDICATED Vital Signs Date Time Temp Pulse Resp B/P (MAP) Pulse Ox O2 Delivery O2 Flow Rate FiO2 07/17/17 10:38 97 Room Air 07/17/17 10:38 18 97 Room Air 07/17/17 10:31 98.2 67 18 112/67 (82) 98 Differential Diagnosis UTI versus pancreatitis versus cholecystitis versus appendicitis versus electrolyte abnormality versus other Narrative Course Patient is a 42-year-old female presenting for the second time in 3 days with abdominal pain, nausea, vomiting. Patient's vital signs are stable. Labs and imaging ordered and pending. Patient was given Zofran by EMS. IV fluids and Ativan ordered. CBC with no acute findings Chemistry with potassium 5.6. Moderate hemolysis noted. Chemistry is otherwise without any acute findings. Urinalysis is consistent with a urinary tract infection, reflex culture pending. Patient was given nitrofurantoin orally. CT scan of the abdomen and pelvis shows no acute findings. There is a 2.1 cm right adnexal cyst. Small hiatal hernia and mild constipation. Patient will be discharged home with nitrofurantoin and oral antiemetic. She is encouraged to increase oral fluid intake, follow up with her primary doctor. She is encouraged to return to emergency department for any new or worsening symptoms. Patient verbalized understanding of these instructions. Patient stable for discharge. Diagnosis Primary Impression: UTI (urinary tract infection) Qualified Codes: N39.0 - Urinary tract infection, site not specified; R31.9 - Hematuria, unspecified Additional Impression: Nausea & vomiting Qualified Codes: R11.2 - Nausea with vomiting, unspecified Referrals: Primary Care Physician Patient Instructions: Acute Nausea and Vomiting (ED), General Instructions, Urinary Tract Infection in Women (ED) Additional Instructions: Maintain adequate fluid intake Complete full course of antibiotics as prescribed Take medications as needed and as directed for nausea and vomiting Return to emergency department for any new or worsening symptoms Follow-up with your primary doctor Med/Other Pt SpecificInfo: Prescription(s) given Scripts Promethazine (Phenergan) 25 Mg Tablet 25 MG PO Q6H Y for NAUSEA OR VOMITING, #12 TAB 0 Refills Prov: Marilu Nair 07/17/17 Nitrofurantoin Monohydrate Macrocrystals (Nitrofurantoin Monohydrate Macrocrystals) 100 Mg Cap 100 MG PO BID for Infection for 7 Days, #14 CAP 0 Refills Prov: Marilu Nair 07/17/17 Disposition: 01 DISCHARGE HOME Condition: Stable Marilu Nair Jul 17, 2017 12:33
[2017-07-17] MEDS ORDERED: IOHEXOL 350 MG/ML 10 ML VIAL (for RAD DIAG) IVCONTRAST ONE (12:36)
--- NOTE | 2017-07-17 12:59 | RADRPT ---
EXAM DATE/TIME: 07/17/2017 12:30 [place] COMPARISON: No previous studies available for comparison. INDICATIONS : Abdominal pain, nausea and vomiting for 1 week, IV CONTRAST: 73 cc Omnipaque 350 (iohexol) IV ORAL CONTRAST: No oral contrast ingested. RADIATION DOSE: 6.39 CTDIvol (mGy) MEDICAL HISTORY : Cardiovascular disease. Gastroparesis. Barrets esophagus, SURGICAL HISTORY : Hysterectomy. ENCOUNTER: Initial ACUITY: 1 week PAIN SCALE: 5/10 LOCATION: Abdomen TECHNIQUE: Volumetric scanning of the abdomen and pelvis was performed. Using automated exposure control and ad justment of the mA and/or kV according to patient size, radiation dose was kept as low as reasonably achievable to obtain optimal diagnostic quality images. DICOM format image data is available electro nically for review and comparison. FINDINGS: Lung bases are clear. There is a small hiatal hernia. No acute findings in the liver, spleen, adrenal s, kidneys and pancreas. No calcified gallstones. No free fluid. No bowel obstruction. No adenopathy. There is a 2.1 cm right adnexal cyst. Mild constipation. CONCLUSION: 1. No acute findings within the abdomen and pelvis. 2.1 cm right adnexal cyst. Small hiatal hernia. M ild constipation. Anish Jimenez MD on July 17, 2017 at 12:51 Board Certified Radiologist. This report was verified electronically.
[2017-07-17] MEDS ORDERED: ONDANSETRON HCL 4 MG/2 ML VIAL IV PUSH ONE (13:15)
[2017-07-17 14:33] LABS: BACTERIA, URINE MANY /hpf; BILIRUBIN, URINE NEG (NEG); BLOOD, URINE NEG (NEG); GLUCOSE,URINE NEG (NEG); KETONE, URINE 40 mg/dL (NEG); NITRITE,URINE NEG (NEG); SQUAMOUS EPITHELIAL CELL URINE 66 /hpf (0-5); URINE COLOR DARK-YELLOW (YELLW/STRAW); URINE LEUKOCYTE ESTERASE NEG (NEG)
[2017-07-17] MEDS ORDERED: NITROFURANTOIN MONOHYD MACROCR 100 MG CAP PO ONE (14:45)
[2017-07-17] MEDS ORDERED: PROM25TA10 PO (15:00)
[2017-07-17] MEDS ORDERED: NITR100C4 PO (15:00)
[2017-07-17 22:46] LABS: ALBUMIN 3.8 GM/DL (3.4-5.0); ALT (GPT) 22 U/L (10-53); AST (GOT) 59 U/L (15-37)
[2017-07-17 22:48] LABS: ALKALINE PHOSPHATASE 47 U/L (45-117); TOTAL BILIRUBIN ADULT 0.4 MG/DL (0.2-1.0); TOTAL PROTEIN 7.6 GM/DL (6.4-8.2)
[2017-07-17 23:09] LABS: DIRECT BILIRUBIN ADULT LESS THAN 0.1 MG/DL (0.0-0.2); INDIRECT BILIRUBIN 0.3 MG/DL (0.0-0.8)
== END 2017-07-17 15:25 | disposition home or self-care (01) ==
LOC: NEDAMB 10:21
DX: N39.0 Urinary tract infection, site not specified (principal); R31.9 Hematuria, unspecified; R11.2 Nausea with vomiting, unspecified; K44.9 Diaphragmatic hernia without obstruction or gangrene; E03.9 Hypothyroidism, unspecified
CPT/HCPCS: 74177; 80053; 81001; 83690; 85025; 87086; 99284; Q9967; 80076

== ENCOUNTER 2017-08-29 05:18 | Emergency (ER) | payer MEDICAID ==
[~2017-08-29] VITALS: Ht 165.1 cm; Wt 65.0 kg
[~2017-08-29 05:18] MED LIST changes: +NITR100C4 PO; +PROM25TA10 PO
[2017-08-29 05:22] VITALS: BP 106/56; PULSE 127; RESP 26; TEMP 101; O2SAT 98
[2017-08-29] MEDS ORDERED: METH40TA PO (05:36)
[2017-08-29] MEDS ORDERED: METOCLOPRAMIDE HCL 10 MG/2 ML VIAL IV PUSH ONE (06:00)
[2017-08-29] MEDS ORDERED: SODIUM CHLOR 0.9% 1000 ML INJ 1,000 ML IV SCH (06:00)
[2017-08-29] MEDS ORDERED: KETOROLAC TROMETHAMINE 30 MG/ML (IVP) VIAL IVP ONE (06:00)
[2017-08-29] MEDS ORDERED: SODIUM CHLORIDE 0.9% FLUSH 10 ML FLUSH IV FLUSH PRN (06:00)
[2017-08-29] MEDS ORDERED: ONDANSETRON HCL 4 MG/2 ML VIAL IVP ONE (06:00)
[2017-08-29] MEDS ORDERED: diphenhydrAMINE HCL 50 MG/ML VIAL IV PUSH ONE (06:00)
--- NOTE | 2017-08-29 06:08 | PD ---
HPI Chief Complaint: Abdominal Pain Time Seen by Provider: 05:56 Travel History International Travel<30 days: No Contact w/Intl Traveler<30days: No Traveled to known affect area: No History of Present Illness HPI 42-year-old female complains some nausea vomiting, chest pain abdominal pain. Patient states that the symptoms started at midnight. Patient has history of recurrent abdominal pain with nausea vomiting in the past. Patient states the pain started epigastric area with radiation to the chest. Patient denies any headache. Patient denies any coughing congestion. Patient states that the abdominal pain crampy pain and sharp pain. Patient denies any fever chills. Patient denies any dysuria or frequency. Patient denies any vaginal discharge or bleeding. Patient has history of gastroparesis and Martinez's esophagus. Patient has been seen by datastage consultant and has frequent endoscopy. PFSH Past Medical History Anemia: Yes Arthritis: No Asthma: No Autoimmune Disease: No Blood Disorders: No Anxiety: Yes Depression: Yes Heart Rhythm Problems: No Cancer: No Cardiac Catheterization: No Cardiovascular Problems: Yes High Cholesterol: No Chest Pain: No Congestive Heart Failure: No COPD: No Cerebrovascular Accident: Yes Diabetes: No Diminished Hearing: No Endocrine: Yes Gastrointestinal Disorders: Yes (GASTROPARESIS/ BARRETTS ESOPHAGUS) GERD: Yes Glaucoma: No Genitourinary: Yes (CHRONIC PID PER PT) Hepatitis: No Hiatal Hernia: No Hypertension: No Immune Disorder: No Implanted Vascular Access Dvce: Yes Kidney Stones: No Musculoskeletal: No Neurologic: Yes Psychiatric: Yes Reproductive: No Respiratory: No Myocardial Infarction: No Renal Failure: No Sleep Apnea: No Thyroid Disease: Yes (hypothyroidism) Ulcer: No ?: Not : 2 Para: 2 Miscarriage: 2 : 0 Tubal Ligation: Yes Past Surgical History Abdominal Surgery: No Appendectomy: No Cardiac Surgery: No Section: Yes (X2) Cholecystectomy: No Coronary Artery Bypass Graft: No Ear Surgery: No Endocrine Surgery: No Eye Surgery: No Genitourinary Surgery: No Gynecologic Surgery: Yes (TUBAL LIGATION & C- SECTION X 2) Neurologic Surgery: No Oral Surgery: Yes (FULL MOUTH EXTRACTION / tonsils removed) Thoracic Surgery: No Tonsillectomy: Yes Other Surgery: Yes Family History Family Myocardial Infarction: No Social History Alcohol Use: No Tobacco Use: No Substance Use: Yes Allergies-Medications (Allergen,Severity, Reaction): Coded Allergies: No Known Allergies (Verified Adverse Reaction, Unknown, 08/29/17) Reported Meds & Prescriptions Reported Meds & Active Scripts Active Phenergan (Promethazine HCl) 25 Mg Tablet 25 Mg PO Q6H PRN Synthroid (Levothyroxine Sodium) 200 Mcg Tab 200 Mcg PO DAILY Protonix (Pantoprazole Sodium) 40 Mg Tab 40 Mg PO BID Reported Methadone (Methadone HCl) 40 Mg Tab 100 Mg PO DAILY Klonopin (Clonazepam) 1 Mg Tab 1 Mg PO HS Seroquel (Quetiapine Fumarate) 300 Mg Tab 300 Mg PO BID Review of Systems General / Constitutional: No: Fever Eyes: No: Visual changes HENT: No: Headaches Cardiovascular: No: Chest Pain or Discomfort Respiratory: No: Shortness of Breath Gastrointestinal: Positive: Nausea, Vomiting, Abdominal Pain Genitourinary: No: Dysuria Musculoskeletal: No: Pain Skin: No Rash Neurologic: No: Weakness Psychiatric: No: Depression Endocrine: No: Polydipsia Hematologic/Lymphatic: No: Easy Bruising Physical Exam Narrative GENERAL: Well-nourished, well-developed patient. SKIN: Focused skin assessment warm/dry. HEAD: Normocephalic. EYES: No scleral icterus. No injection or drainage. NECK: Supple, trachea midline. No JVD or lymphadenopathy. CARDIOVASCULAR: Regular rate and rhythm without murmurs, gallops, or rubs. RESPIRATORY: Breath sounds equal bilaterally. No accessory muscle use. GASTROINTESTINAL: Abdomen soft, nondistended. Patient has moderate tenderness to palpation epigastric area. No rebound tenderness. No mass. MUSCULOSKELETAL: No cyanosis, or edema. BACK: Nontender without obvious deformity. No CVA tenderness. Neurologic exam normal. Data Data Last Documented VS Vital Signs Date Time Temp Pulse Resp B/P (MAP) Pulse Ox O2 Delivery O2 Flow Rate FiO2 08/29/17 05:22 101.0 127 26 106/56 (73) 98 Orders Orders Complete Blood Count With Diff (08/29/17 06:00) Comprehensive Metabolic Panel (08/29/17 06:00) Lipase (08/29/17 06:00) Urinalysis - C+S If Indicated (08/29/17 06:00) Abdomen, Flat & Upright (08/29/17 ) Iv Access Insert/Monitor (08/29/17 06:00) Ecg Monitoring (08/29/17 06:00) Oximetry (08/29/17 06:00) Ondansetron Inj (Zofran Inj) (08/29/17 06:00) Sodium Chlor 0.9% 1000 Ml Inj (Ns 1000 M (08/29/17 06:00) Sodium Chloride 0.9% Flush (Ns Flush) (08/29/17 06:00) Electrocardiogram (08/29/17 06:00) Chest, Single Ap (08/29/17 06:00) Ketorolac Inj (Toradol Inj) (08/29/17 06:00) Metoclopramide Inj (Reglan Inj) (08/29/17 06:00) Diphenhydramine Inj (Benadryl Inj) (08/29/17 06:00) Creatine Kinase (Cpk) (08/29/17 06:02) Troponin I (08/29/17 06:02) MDM Medical Decision Making Medical Screen Exam Complete: Yes Emergency Medical Condition: Yes Differential Diagnosis Differential diagnosis including gastroenteritis, gastroparesis, gastritis, PUD , gastritis, cholecystitis, colitis, UTI, pyelonephritis, nephrolithiasis. Narrative Course 42-year-old female with abdominal pain, nausea vomiting. History of recurrent abdominal pain with nausea vomiting. Vincent Leong MD Aug 29, 2017 06:08
[2017-08-29 06:52] LABS: AUTOMATED NEUTROPHIL # 5.9 TH/MM3 (1.8-7.7); BASOPHIL # 0.1 TH/MM3 (0-0.2); BASOPHIL % 1.3 % (0.0-2.0); EOSINOPHIL % 0.4 % (0.0-4.0); HEMATOCRIT 35.8 % (35.0-46.0); HEMOGLOBIN 12.1 GM/DL (11.6-15.3); LYMPH % 17.6 % (9.0-44.0); LYMPHOCYTE # 1.3 TH/MM3 (1.0-4.8); MEAN CELL VOLUME 76.3 FL (80.0-100.0); MEAN CORPUSCULAR HEMOGLOBIN 25.8 PG (27.0-34.0); MEAN CORPUSCULAR HGB CONC 33.8 % (32.0-36.0); MEAN PLATELET VOLUME 10.1 FL (7.0-11.0); MONO % 1.1 % (0.0-8.0); MONOCYTE # 0.1 TH/MM3 (0-0.9); NEUT % 79.6 % (16.0-70.0); PLATELET COUNT 227 TH/MM3 (150-450); RED BLOOD COUNT 4.69 MIL/MM3 (4.00-5.30); RED CELL DISTRIBUTION WIDTH 17.6 % (11.6-17.2); WHITE BLOOD COUNT 7.5 TH/MM3 (4.0-11.0)
--- NOTE | 2017-08-29 06:52 | RADRPT ---
EXAM DATE/TIME: 08/29/2017 06:29 [facility] COMPARISON: CHEST SINGLE AP, February 18, 2017, 13:22. INDICATIONS : Shortness of breath, chest pain, and anxiety. MEDICAL HISTORY : Cardiovascular disease. Gastroparesis. Hiatal hernia. Barrets esophagus Anxiety SURGICAL HISTORY : Hysterectomy. ENCOUNTER: Initial ACUITY: 1 day PAIN SCORE: 7/10 LOCATION: Bilateral chest FINDINGS: A single portable frontal view of the chest shows an intra-alveolar infiltrate within the right base. Left lung is clear. No effusions. Heart is normal in size. Bony structures are unremarkable. CONCLUSION: Right lower lobe infiltrate. Jose A Montana Jr., MD on August 29, 2017 at 6:50 Board Certified Radiologist. This report was verified electronically.
--- NOTE | 2017-08-29 06:53 | RADRPT ---
EXAM DATE/TIME: 08/29/2017 06:31 [facility] COMPARISON: No previous studies available for comparison. INDICATIONS : Nausea and vomiting, anxiety. MEDICAL HISTORY : Cardiovascular disease. Gastroparesis. Barrets esophagus Anxiety SURGICAL HISTORY : Hysterectomy. ENCOUNTER: Initial ACUITY: 1 day PAIN SCORE: 0/10 LOCATION: Bilateral abdomen FINDINGS: Supine and upright views of the abdomen were performed. The abdominal bowel gas pattern is normal. S ignificant stool throughout normal caliber colon. No air fluid levels are seen. No abnormal masses, calcifications, or organomegaly is seen. The visualized lower lungs are clear. No evidence of free intraperitoneal gas. The osseous structures are unremarkable. CONCLUSION: 1. Constipation. 2. No dilated bowel loops. Jose A Montana Jr., MD on August 29, 2017 at 6:51 Board Certified Radiologist. This report was verified electronically.
--- NOTE | 2017-08-29 07:07 | PD ---
Physical Exam Narrative Received sign out from previous team to follow up labs and reevaluate 42yo F with gastroparesis with frequent abdominal pain here with epigastric abdominal pain radiating up the chest. Chest pain is atypical and pt is pending CMP and cardiac enzymes. I received sign out at 7am and it is now 7: 11am and pt said she has to leave to go to her methadone clinic. Said she has no chest pain, sob, nausea or abdominal pain now. She feels great and wants to go. Xray abdomen showed constipation. No dilated bowel loops. CXR showed right lower lobe infiltrate. Pt has been having some cough and vital signs initially showed temp of 101F and tachycardia so will cover with antibiotics. Pt takes seroquel so azithromycin and levofloxacin was not given since they both prolong QT interval. Pt given cephalexin instead. Pt is well appearing with improved vital signs and said she must leave now and cannot wait for her blood work to come back. CBC is back and showed no leukocytosis. Pt is signing against medical advice since her blood work is not back yet. AMA: The risks of leaving against medical advice without further evaluation treatment were discussed with the patient. These risks include cardiac dysfunction, cardiac dysrhythmia, possible heart attack, possible stroke or . The patient indicated understanding of these risks and appeared to have the capacity to make this decision. Data Data Last Documented VS Vital Signs Date Time Temp Pulse Resp B/P (MAP) Pulse Ox O2 Delivery O2 Flow Rate FiO2 08/29/17 07:21 (72) 08/29/17 07:11 98.7 96 18 98 Room Air Orders Orders Complete Blood Count With Diff (08/29/17 06:00) Comprehensive Metabolic Panel (08/29/17 06:00) Lipase (08/29/17 06:00) Abdomen, Flat & Upright (08/29/17 ) Iv Access Insert/Monitor (08/29/17 06:00) Ecg Monitoring (08/29/17 06:00) Oximetry (08/29/17 06:00) Ondansetron Inj (Zofran Inj) (08/29/17 06:00) Sodium Chlor 0.9% 1000 Ml Inj (Ns 1000 M (08/29/17 06:00) Sodium Chloride 0.9% Flush (Ns Flush) (08/29/17 06:00) Electrocardiogram (08/29/17 06:00) Chest, Single Ap (08/29/17 06:00) Ketorolac Inj (Toradol Inj) (08/29/17 06:00) Metoclopramide Inj (Reglan Inj) (08/29/17 06:00) Diphenhydramine Inj (Benadryl Inj) (08/29/17 06:00) Creatine Kinase (Cpk) (08/29/17 06:02) Troponin I (08/29/17 06:02) Labs Laboratory Tests Test 08/29/17 05:50 White Blood Count 7.5 TH/MM3 Red Blood Count 4.69 MIL/MM3 Hemoglobin 12.1 GM/DL Hematocrit 35.8 % Mean Corpuscular Volume 76.3 FL Mean Corpuscular Hemoglobin 25.8 PG Mean Corpuscular Hemoglobin Concent 33.8 % Red Cell Distribution Width 17.6 % Platelet Count 227 TH/MM3 Mean Platelet Volume 10.1 FL Neutrophils (%) (Auto) 79.6 % Lymphocytes (%) (Auto) 17.6 % Monocytes (%) (Auto) 1.1 % Eosinophils (%) (Auto) 0.4 % Basophils (%) (Auto) 1.3 % Neutrophils # (Auto) 5.9 TH/MM3 Lymphocytes # (Auto) 1.3 TH/MM3 Monocytes # (Auto) 0.1 TH/MM3 Eosinophils # (Auto) 0.0 TH/MM3 Basophils # (Auto) 0.1 TH/MM3 CBC Comment DIFF FINAL Differential Comment Blood Urea Nitrogen 9 MG/DL Creatinine 1.19 MG/DL Random Glucose 125 MG/DL Total Protein 7.6 GM/DL Albumin 3.9 GM/DL Calcium Level 9.2 MG/DL Alkaline Phosphatase 250 U/L Aspartate Amino Transf (AST/SGOT) 601 U/L Alanine Aminotransferase (ALT/SGPT) 749 U/L Total Bilirubin 1.1 MG/DL Sodium Level 142 MEQ/L Potassium Level 3.5 MEQ/L Chloride Level 106 MEQ/L Carbon Dioxide Level 22.6 MEQ/L Anion Gap 13 MEQ/L Estimat Glomerular Filtration Rate 49 ML/MIN Total Creatine Kinase 35 U/L Troponin I LESS THAN 0.02 NG/ML Lipase 143 U/L [facility] Supervised Visit with [facility]: No Diagnosis Primary Impression: Pneumonia Qualified Codes: J18.1 - Lobar pneumonia, unspecified organism Patient Instructions: General Instructions Departure Forms: Tests/Procedures Additional Instruction: Please return to the ED if symptoms worsen. Please follow up with your GI physician and primary care physician. Med/Other Pt SpecificInfo: Prescription(s) given Scripts Cephalexin (Cephalexin) 500 Mg Cap 500 MG PO Q12H for Infection for 7 Days, #14 CAP 0 Refills Prov: Eliza De León DO 08/29/17 Disposition: 07 AGAINST MEDICAL ADVICE Condition: Stable Eliza De León DO Aug 29, 2017 07:07
[2017-08-29 07:11] VITALS: BP 104/56; PULSE 96; RESP 18; TEMP 98.7; O2SAT 98
[2017-08-29 07:11] LABS: ALBUMIN 3.9 GM/DL (3.4-5.0); ALT (GPT) 749 U/L (10-53); AST (GOT) 601 U/L (15-37); BICARBONATE 22.6 MEQ/L (21.0-32.0); BLOOD UREA NITROGEN 9 MG/DL (7-18); CALCIUM 9.2 MG/DL (8.5-10.1); CHLORIDE 106 MEQ/L (98-107); CREATININE 1.19 MG/DL (0.50-1.00); GLOMERULAR FILTRATION RATE 49 ML/MIN (>89); GLUCOSE,RANDOM 125 MG/DL (74-106); SODIUM (NA) 142 MEQ/L (136-145)
[2017-08-29 07:13] LABS: ALKALINE PHOSPHATASE 250 U/L (45-117); TOTAL BILIRUBIN ADULT 1.1 MG/DL (0.2-1.0); TOTAL PROTEIN 7.6 GM/DL (6.4-8.2)
[2017-08-29 07:15] LABS: TROPONIN I LESS THAN 0.02 NG/ML (0.02-0.05)
[2017-08-29] MEDS ORDERED: ZITHTAB PO (07:16)
[2017-08-29] MEDS ORDERED: CEPH500C PO (07:18)
--- NOTE | 2017-08-29 18:20 | EKG ---
Date Performed: 08/29/2017 Time Performed: 06:40:22 PTAGE: 42 years EKG: Sinus rhythm WITH VENTRICULAR PREMATURE COMPLEXES DIFFUSE MARKED ST-T WAVE CHANGES WITH DEPRESSIONS THAT ARE NEW FROM THE OLD TRACING Clinical correlation is recommended ABNORMAL ECG PREVIOUS TRACING : 07/14/2017 10.14 DOCTOR: Matias Key Interpretating Date/Time 08/29/2017 18:19:23
== END 2017-08-29 07:22 | disposition left against medical advice (07) ==
LOC: NEPC 05:18
DX: J18.1 Lobar pneumonia, unspecified organism (principal); R07.9 Chest pain, unspecified; R10.13 Epigastric pain; K59.00 Constipation, unspecified; R94.31 Abnormal electrocardiogram [ECG] [EKG]; K31.84 Gastroparesis; E03.9 Hypothyroidism, unspecified; K21.9 Gastro-esophageal reflux disease without esophagitis; F41.8 Other specified anxiety disorders; Z53.29 Procedure and treatment not carried out because of patient's decision for other reasons; Z86.79 Personal history of other diseases of the circulatory system; Z86.73 Personal history of transient ischemic attack (TIA), and cerebral infarction without residual deficits; Z87.19 Personal history of other diseases of the digestive system; Z87.448 Personal history of other diseases of urinary system; Z86.69 Personal history of other diseases of the nervous system and sense organs
CPT/HCPCS: 71045; 74019; 80053; 82550; 83690; 84484; 85025; 93005; 96361; 96374; 96375; 99285; J1200; J1885; J2405; J2765; J7030